=== PATIENT | female | born 1980 | race Caucasian/White ===

== ENCOUNTER 2020-09-20 07:56 | Emergency (ER) | payer SELFPAY ==
--- OUTSIDE RECORDS SUMMARY | 2020-09-20 08:05 | XMS REPORT | Continuity of Care Document ---
:1980 Author Organization [facility] t Address [address] [place] [place] [address] Care Team Providers Name Role Phone Irineo HERNANDEZ, Candy. Primary Care Physician Bg Wells DO Attending Clinician Marshal Dan Attending Clinician Tima Warner MD Attending Clinician Juan CANTU Attending Clinician Mak Prieto MD Attending Clinician Tash HERNANDEZ, Ara Attending Clinician Henry HERNANDEZ Attending Clinician Luan Ramachandran MD Attending Clinician Noni HERNANDEZ Attending Clinician Primo Reeder DO Attending Clinician Neftaly Courtney MD Attending Clinician Margarita HERNANDEZ, Keenan Attending Clinician Italo HERNANDEZ, Kiel Attending Clinician Estrellita HERNANDEZ, David Anaya Attending Clinician [phone] Gayla HERNANDEZ, Bg Attending Clinician Yvonne DYKES Attending Clinician Unavailable Thuy HERNANDEZ Attending Clinician Althea Garcias MD Attending Clinician Shannon Montana MD Attending Clinician Nayely Thomas MD Attending Clinician Gerardo Torres Attending Clinician Jomar Anderson Attending Clinician Otis Wallace Attending Clinician Hilton Alvarado Attending Clinician LANCE Attending Clinician Unavailable Vidal Attending Clinician JUAN Admitting Clinician Unavailable TASH Admitting Clinician Unavailable MARGARITA Admitting Clinician Unavailable ESTRELLITA Admitting Clinician Unavailable LANCE Admitting Clinician Unavailable Payers Payer Name Policy Type Policy Effective Date Expiration Date Sour ce Number MEDICAID [id number] 2019 [place] [id number] 00:00:00 [facility] ICAID [id number]/[id number] 20-PresentMedic aid Problems Condition Condition Condition Status Onset Resolution Last Treating Co mments Source Name Details Category Date Date Treatment Clinician Date ABDOMINAL Diagnosis Active 2019-052020-03-20 Memoria PAIN 0-23 10:35:00 l 00:00: Bruno ABDOMINAL 00 PAIN Active 03/17/2020 [facility] Back pain Back pain Disease Active 2019-05 [facility] 0-11 [facility] 00:00: st 00 Intractabl Intractabl Disease Active 2020- [place] e low back e low back 8-31 Me thodi pain pain 00:00: st 00 Abdominal Abdominal Disease Active 2020- [facility] pain pain 8-29 [facility] 00:00: st 00 Generalize Generalize Disease Active 2020-0 [place] d d 7-21 [facility] abdominal abdominal 00:00: st pain pain 00 Right Right Disease Active 2020- [place] flank pain flank pain 7-21 Me thodi 00:00: st 00 Intractabl Intractabl Disease Active 2020-0 [place] e e 6-13 [facility] abdominal abdominal 00:00: st pain pain 00 Left lower Left lower Disease Active 2020-0 [place] quadrant quadrant 5-29 Method i abdominal abdominal 00:00: st pain pain 00 ABSCESS IN Diagnosis Active 2016-2016-10-03 Memoria MONTH 5-11 11:03:00 l ABSCESS 00:00: [place] IN MONTH 00 Active 10/03/2016 [facility] COUGH, Diagnosis Active 2016-09-08 Mem oria CONGESTED 09-05 12:21:00 l COUGH, 00:00: [place] CONGESTED 00 Active 09/05/2016 [facility] URINARY Diagnosis Active 2015-052016-05-21 Me moria PROBLEMS 07-22 23:30:00 l URINARY 01:00: Bruno PROBLEMS 00 Active 05/21/2016 [facility] POSS Diagnosis Active 2015-12-31 Mem oria REACTION 8- 22:16:00 l TO POSS 00:00: [place] MEDICATION REACTION 00 TO MEDICATION Active 12/31/2015 [facility] KIDNEY Diagnosis Active 2015-11-09 Mem oria STONES 6-15 01:53:00 l KIDNEY 01:00: Bruno STONES 00 Active 11/08/2015 [facility] KIDNEY Diagnosis Active 2015-11-20 Mem oria STONES 6-09 07:06:00 l BACK PAIN KIDNEY 08:00: Erica nn STONES 00 BACK PAIN Active 11/02/2015 [facility] Heart Problem Resolve 2020-03-19 Dennis michaela disease d 22:02:59 l (disorder) Heart Erica nn disease (disorder) Resolved Problem 03/19/2020 [facility] Tachycardi Problem Resolve 2020-03-19 Memoria a d 22:02:59 l (finding) [place] Tachycardi a (finding) Resolved Problem 03/19/2020 [facility] Kidney Problem Resolve 2020-03-19 Dennis michaela stone d 22:02:59 l (disorder) Kidney Herm rachael stone (disorder) Resolved Problem 03/19/2020 [facility] History of Problem Active 2020-03-19 M emoria - 22:02:59 l hyperchole History Her bloom sterolemia of - (context-d hyperchole ependent sterolemia category) (context-d ependent category) Active Problem 03/19/2020 [facility] Hypertensi Problem Active 2020-03-19 M emoria ve 22:02:59 l disorder, Bruno systemic Hypertensi arterial ve (disorder) disorder, systemic arterial (disorder) Active Problem 03/19/2020 [facility] History of Past Illness Condition Condition Condition Status Onset Resolution Last Treating Co mments Source Name Details Category Date Date Treatment Clinician Date Low back Problem 2019-052020-03-19 2020-03-19 Memoria pain 0- 22:02:59 22:02:59 l Low back 17:00: Will n pain 00 03/17/2020 03/19/2020 [facility] Other Problem 2016-2016-10-06 2016-10-06 M emoria specified 5-11 04:37:25 04:37:25 l disorders Other 05:00: Will n of teeth specified 00 and disorders supporting of teeth structures and supporting structures 10/03/2016 10/06/2016 [facility] Acute Problem 2016-09-11 2016-09-11 M emoria upper 4-16 00:29:14 00:29:14 l respirator Acute 05:00: Erica nn y upper 00 infection, respirator unspecifie y d infection, unspecifie d 09/08/2016 09/11/2016 [facility] Discharge Problem 2015-052016-05-25 2016-05-25 Memoria Diagnosis: 2- 04:15:05 04:15:05 l Back pain 06:00: [place] Discharge 00 Diagnosis: Back pain 05/21/2016 05/25/2016 [facility] Discharge Problem 2015-052016-05-25 2016-05-25 Memoria Diagnosis: 2- 04:15:05 04:15:05 l [place] 06:00: Will n s Discharge 00 vaginalis Diagnosis: infection Trich[place] s vaginalis infection 05/21/2016 05/25/2016 [facility] Discharge Problem 2016-01-04 2016-01-04 Memoria Diagnosis: 8- 02:17:05 02:17:05 l Chest pain 05:00: Will n Discharge 00 Diagnosis: Chest pain 01/01/2016 01/04/2016 [facility] Discharge Problem 2015-11-10 2015-11-10 Memoria Diagnosis: 6-14 04:27:22 04:27:22 l Mid back 05:00: [place] pain on Discharge 00 left side Diagnosis: Mid back pain on left side 11/07/2015 11/10/2015 [facility] Allergies, Adverse Reactions, Alerts Allergy Allergy Status Severity Reaction(s) Onset Inactive Treating Comm ents Source Name Type Date Date Clinician No Known No Known Active Memori a Medicati Medicati l on on [place] Allergie Allergie s s Family History Family Member Diagnosis Comments Start Date Stop Date Source Natural father Hyperlipidemia [place] [facility] Natural father Hypertension [place] [facility] Maternal grandmother Heart disease [place] [facility] Paternal grandfather Cancer [place] mig[place] [facility] Paternal grandfather Diabetes Mike bullard [facility] Paternal grandmother Cancer [place] [facility] [facility] Social History Social Habit Start Date Stop Date Quantity Comments Source [facility] Alcohol Std Drinks [facility] Alcohol Binge Tobacco use and 2020-07-10 2020-07-10 Never used [place] [place] ethodist exposure 00:00:00 00:00:00 Alcohol intake 2020-07-10 2020-07-10 Lifetime Willy Me thodist 00:00:00 00:00:00 non-drinker (finding) History SDOH 2019-10-21 2019-10-21 1 [place] Meth odist Alcohol Frequency 00:00:00 00:00:00 History of tobacco 2017-07-23 Current smoker [place] [facility] use 00:00:00 Sex [birth year] At [birth year] [place] ethodist 00:00:00 00:00:00 Smoking Status Start Date Stop Date Source Former smoker 2020-07-10 00:00:00 2020-07-10 00:00:00 [place] [facility] Social History 2020-03-17 16:10:23 [facility] Medications Ordered Filled Start Stop Current Ordering Indication Dosage Frequency Signature Comments Components Source Medication Medication Date Date Medication? Clinician (SIG) Name Name Ondansetron 2019-05 No Notes: Dennis michaela 0-23 (Same as: l 20:21: Zofran) MEDICATION WASTE Product Size: 4 mg Product Wasted: ___ mg Morphine 2019-05 No Notes: Memoria 0-23 (Same l 20:21: as:MORPhin e Sulfate) Morphine 2019-05 No 2 mg, Memoria 0-23 Route: l 17:10: IVP, ONCE, Dosing Weight 81.364, kg, Priority: STAT, Start date: 03/17/20 12:10:00 CDT, Stop date: 03/17/20 12:10:00 CDT Ondansetron 2019-05 No 4 mg, Memor ia 0-23 Route: l 16:52: IVP, ONCE, Dosing Weight 81.364, kg, Priority: STAT, Start date: 03/17/20 11:52:00 CDT, Stop date: 03/17/20 11:52:00 CDT Sodium 2019-05 No 1,000 mL, Memori a Chloride 0-23 Infuse l 0.9% 16:51: Over: 1 Bruno (Bolus) IV 00 hr, Route: IV, ONCE, Priority: STAT, Dosing Weight 81.364 kg, Start date: 03/17/20 11:51:00 CDT, Stop date: 03/17/20 11:51:00 CDT Saline 2019-05 No Notes: Memoria Flush 0.9% 0-23 (Same as: l 16:18: BD Posiflush) Ketorolac 2019-05 No 30 mg, Memori a 0-23 Route: l 16:18: IVP, ONCE, Dosing Weight 81.364, kg, Priority: STAT, Start date: 03/17/20 11:18:00 CDT, Stop date: 03/17/20 11:18:00 CDT methocarbam 2019-05 Yes 750mg Q8H Take 750 [place] oL 0-12 mg by Methodi (ROBAXIN) 11:08: mouth st 750 MG 45 every 8 tablet (eight) hours. metoprolol 2019-05 Yes 25mg Q.5D Take 25 mg [place] tartrate 0-12 by mouth 2 Metho di (LOPRESSOR) 11:08: (two) st 25 mg 45 times a tablet day. gabapentin 2019-05 Yes 300mg Q.25D Take 300 [place] (NEURONTIN) 0-12 mg by Methodi 300 mg 11:08: mouth 4 st capsule 45 (four) times a day. ondansetron 2020- Yes 4mg Q8H Take 4 mg [place] (ZOFRAN) 4 0-12 by mouth Metho di MG tablet 11:08: every 8 st 45 (eight) hours as needed for nausea or vomiting. omeprazole 2020- Yes 20mg Q.5D Take 20 mg [place] (PriLOSEC) 0-12 by mouth 2 Met hodi 20 MG 11:08: (two) st capsule 45 times a day. zolpidem 2019-05 Yes 10mg QD Take 10 mg [facility]on (AMBIEN) 10 0-12 by mouth Meth prabhu mg tablet 11:08: nightly as st 45 needed for sleep. clonAZEPAM 2019-05 Yes 1mg Q.25D Take 1 mg [place] (KlonoPIN) 0-12 by mouth 4 Met hodi 1 MG tablet 11:08: (four) st 45 times a day. HYDROcodone 2019- Yes acute pain 1{tbl} Q4H Take 1 [place] -acetaminop 0-12 tablet by Met hodi hen (NORCO) 11:08: mouth st 10-325 mg 45 every 4 per tablet (four) hours as needed for moderate pain .acute pain. vortioxetin 2019-05 2020- No 10mg QD Take 10 mg [place] e 0-12 10-12 by mouth Methodi (Trintellix 02:13: 00:[address] ) 10 mg 52 :00 tablet metoprolol 2020- No 25mg Q.5D Take 25 mg [place] tartrate 01-28 by mouth 2 Meth prabhu (LOPRESSOR) 14:03: 00:00 (two) st 25 mg 13 :00 times a tablet day. gabapentin 2020- No 300mg Q.[id number] Take 300 [place] (NEURONTIN) 01-28 [id number] mg by Methodi 300 mg 13:47: 00:[address] capsule 59 :00 (three) times a day. metoprolol 2020- No 25mg Q.5D Take 1 [place] tartrate 01-28 tablet (25 Meth prabhu (LOPRESSOR) 00:00: 23:59 mg total) st 25 mg 00 :00 by mouth 2 tablet (two) times a day for 30 days. ferrous 2019- 2020- No 325mg Q.5D Take 1 [place] sulfate 325 01-28 tablet Metho di (65 FE) MG 00:00: 23:59 ([address] tablet 00 :00 total) by mouth 2 (two) times a day with meals for 30 days. gabapentin 2019- 2020- No 300mg Q.[id number] Take 1 [place] (NEURONTIN) 01-28- [id number] capsule Methodi 300 mg 00:00: 23:59 3D ([address] capsule 00 :00 total) by mouth 3 (three) times a day as needed (pain) for up to 5 days. polyethylen 2019- 2020- No 34g QD Take 34 g [place] e glycol 12-16 by mouth Method i (MIRALAX) 00:00: 23:[address] 17 gram 00 :00 30 days. packet HYDROcodone 2019- 2020- No acute pain 1{tbl} Q4H Take 1 [place] -acetaminop 12-15 tablet by Me thodi hen (NORCO) 12:09: 00:[address] 7.5-325 mg 45 :00 every 4 per tablet (four) hours as needed for moderate pain .acute pain. clonAZEPAM 2019-2019- No 1mg Q.25D Take 1 mg [place] (KlonoPIN) 12-15 by mouth 4 Me thodi 1 MG tablet 10:45: 00:00 (four) st 28 :00 times a day. metoprolol 2019-0 2020- No 25mg Q.5D Take 25 mg [place] tartrate 12-15 by mouth 2 Meth prabhu (LOPRESSOR) 10:45: 00:00 (two) st 25 mg 28 :00 times a tablet day. gabapentin 2019- 2020- No 300mg Q.[id number] Take 300 [place] (NEURONTIN) 12-15 [id number] mg by Methodi 300 mg 10:45: 00:[address] capsule 28 :00 (three) times a day. vortioxetin 2019-0 2020- No 10mg QD Take 10 mg [place] e 12-15 by mouth Methodi (Trintellix 10:45: 00:[address] ) 10 mg 28 :00 tablet vortioxetin 2019-0 2020- No 10mg QD Take 10 mg [place] e 12-15 by mouth Methodi (Trintellix 00:00: 23:[address] ) 10 mg 00 :00 30 days. tablet metoprolol 2020-0 2020- No 25mg Q.5D Take 1 [place] tartrate 12-15 tablet (25 Meth prabhu (LOPRESSOR) 00:00: 23:59 mg total) st 25 mg 00 :00 by mouth 2 tablet (two) times a day for 30 days. clonAZEPAM 2019-0 2020- No 1mg Q.[id number] Take 1 [place] (KlonoPIN) 12-15 [id number] tablet (1 Methodi 1 MG tablet 00:00: 23:59 3D mg total) st 00 :00 by mouth 3 (three) times a day for 7 days. gabapentin 2019- No 300mg Q.[id number] Take 1 [place] (NEURONTIN) 12-15 [id number] capsule Methodi 300 mg 00:00: 23:59 3D ([address] capsule 00 :00 total) by mouth 3 (three) times a day for 7 days. HYDROcodone 2020- No acute pain 1{tbl} Q4H Take 1 [place] -acetaminop 12-15 tablet by Me pena hen (NORCO) 00:00: 23:[address] 10-325 mg 00 :00 every 4 per tablet (four) hours as needed for moderate pain or severe pain for up to 7 days .acute pain. Max Daily Amount: 6 tablets cephalexin 2019- No 500mg Q.5D Take 500 [place] (KEFLEX) 12-13 07-21 mg by Methodi 500 MG 16:02: 00:[address] capsule 22 :00 (two) times a day. Started taking 11/04/19 for 7 days gabapentin 2019- No 300mg Q.[id number] Take 300 [place] (NEURONTIN) 11-06 [id number] mg by Methodi 300 mg 14:34: 00:[address] capsule 06 :00 (three) times a day. metoprolol 2019- No 25mg Q.5D Take 25 mg [place] tartrate 11-06 by mouth 2 Meth prabhu (LOPRESSOR) 14:34: 00:00 (two) st 25 mg 06 :00 times a tablet day. omeprazole 2020- No 20mg Q.5D Take 20 mg [place] (PriLOSEC) 11-06 by mouth 2 Me thodi 20 MG 14:34: 00:00 (two) st capsule 06 :00 times a day. vortioxetin 2019- No 20mg QD Take 20 mg [place] e 11-06 by mouth Methodi (Trintellix 14:34: 00:[address] ) 20 mg 06 :00 morning. tablet metoprolol 2019-0 2020- No 25mg Q.5D Take 1 [place] tartrate 11-06 tablet (25 Meth prabhu (LOPRESSOR) 00:00: 23:59 mg total) st 25 mg 00 :00 by mouth 2 tablet (two) times a day for 30 days. gabapentin 2019-0 2020- No 300mg Q.[id number] Take 1 [place] (NEURONTIN) 11-06 [id number] capsule Methodi 300 mg 00:00: 23:59 3D ([address] capsule 00 :00 total) by mouth 3 (three) times a day for 30 days. omeprazole 2019-0 2020- No 20mg Q.5D Take 1 [place] (PriLOSEC) 11-06 capsule Metho di 20 MG 00:00: 23:59 ([address] capsule 00 :00 total) by mouth 2 (two) times a day for 30 days. vortioxetin 2019-0 2020- No 20mg QD Take 1 [facility] e 11-06 tablet (20 Methodi (Trintellix 00:00: 23:59 mg total) st ) 20 mg 00 :00 by mouth tablet every morning for 30 days. dicyclomine 2019-0 2020- No 10mg Q.25D Take 1 [place] (BentyL) 10 11-06 capsule Meth prabhu MG capsule 00:00: 23:59 ([address] 00 :00 total) by mouth 4 (four) times a day before meals and nightly for 5 days. clonAZEPAM 2019-0 2020- No 1mg Q.5D Take 1 [place] (KlonoPIN) 11-06 tablet (1 Met hodi 1 MG tablet 00:00: 23:59 mg total) st 00 :00 by mouth 2 (two) times a day as needed for seizures for up to 5 days. phenazopyri 2019-0 2020- No 200mg Q.[id number] Take 1 [place] dine 11-06 [id number] tablet Method i (Pyridium) 00:00: 23:59 3D ([address] 200 MG 00 :00 total) by tablet mouth 3 (three) times a day as needed for bladder spasms for up to 3 days. vortioxetin 2019- No 10mg QD Take 10 mg [place] e 11-05 by mouth Methodi (BRINTELLIX 20:26: 00:[address] ) 20 mg 44 :00 tablet clonAZEPAM 2019- No .5mg Q6H Take 0.5 [place] (KlonoPIN) 11-05-13 mg by Methodi 1 MG tablet 20:25: 00:[address] 42 :00 every 6 (six) hours as needed for seizures. Per patient she only takes half tab at a time cephalexin 2019- No 500mg Q.5D Take 1 [facility] [place] (KEFLEX) 11-03 capsule Methodi 500 MG 00:00: 00:00 ([address] capsule 00 :00 total) by mouth 2 (two) times a day for 7 days. cephalexin 2019- No 500mg Q.5D Take 1 [place] (KEFLEX) 11-03 capsule Methodi 500 MG 00:00: 00:00 ([address] capsule 00 :00 total) by mouth 2 (two) times a day for 7 days. traMADoL 2019- No acute pain 50mg Q8H Take 1 [place] (Ultram) 50 6-04 06-09 tablet (50 M ethodi mg tablet 00:00: 23:59 mg total) st 00 :00 by mouth every 8 (eight) hours as needed for moderate pain for up to 5 days .acute pain. ibuprofen 2019- No 800mg Q6H Take 1 [place] (ADVIL) 800 10-20-13 tablet Metho di MG tablet 00:00: 00:00 ([address] 00 :00 total) by mouth every 6 (six) hours as needed for mild pain for up to 30 days. acetaminoph 2019- No acute pain 1{tbl} Q6H Take 1-2 [place] en-codeine -28 05-30 tablets by Hi jean (TYLENOL 00:00: 23:[address] WITH 00 :00 every 6 CODEINE #3) (six) 300-30 mg hours as per tablet needed for moderate pain for up to 2 days .acute pain. tramadol Yes 100 mg = 2 Mem oria hydrochlori 5-11 tab, PO, l de 50 MG 15:50: Q8H, PRN Erica nn Oral Tablet 00 pain, X 5 [Ultram] day, # 30 tab, 0 Refill(s) clindamycin Yes 300 mg = 1 Memoria 300 mg oral 5-11 cap, PO, l capsule 15:50: Q6H, X 10 Erica nn 00 day, # 40 cap, 0 Refill(s) Zofran ODT No 4 mg, Memori a 10-03 Route: PO, l 15:27: Drug form: [place] 00 TABDIS, ONCE, Dosing Weight 68.182, kg, Priority: STAT, Start date: 10/03/16 10:27:00 CDT, Stop date: 10/03/16 10:27:00 CDT Acetaminoph No 1 tab, Dennis michaela en 325 MG / 10-03 Route: PO, l Hydrocodone 15:27: Drug Form: [place] Bitartrate 00 TAB, 10 MG Oral Dosing Tablet Weight [[place] 68.182, 10/325] kg, ONCE, STAT, Start date: 10/03/16 10:27:00 CDT, Stop date: 10/03/16 10:27:00 CDT Bromphenira Yes 10 mL, PO, Memoria mine 4-16 Q4H, PRN l Maleate 0.4 16:43: cough, X 3 Bruno MG/ML / 00 day, # 180 Dextrometho mL, 0 rphan Refill(s) Hydrobromid e 2 MG/ML / Pseudoephed rine Hydrochlori de 6 MG/ML Oral Solution [Bromfed DM] Motrin 600 Yes 600 mg = 1 M emoria mg oral 4-16 tab, PO, l tablet 16:43: Q8H, PRN Bruno 00 Pain, take with food, X 5 day, # 15 tab, 0 Refill(s) Acetaminoph Yes 1 tab, PO, Memoria en 300 MG / 4-16 Q6H, PRN l Codeine 16:43: Pain, X 7 Erica nn Phosphate 00 day, # 6 30 MG Oral tab, 0 Tablet Refill(s) [Tylenol with Codeine #3] Metronidazo 2015-05 Yes 500 mg = 1 Memoria le 500 MG 2-28 tab, PO, l Oral Tablet 05:32: Q8H, X 7 He rmann [Flagyl] 00 day, # 21 tab, 0 Refill(s) Naproxen 2015-05 No 500 mg = 1 Mem oria 500 MG Oral 2-28 tab, PO, l Tablet 05:32: BID, PRN Bruno [Naprosyn] 00 Pain, # 20 tab, 0 Refill(s) Ketorolac 2015-05 No 60 mg, Memori a 07-23 Route: IM, l 04:51: Drug form: [place] 00 INJ, ONCE, Dosing Weight 75.114, kg, Priority: STAT, Start date: 05/21/16 22:51:00 [employer], Stop date: 05/21/16 22:51:00 [employer] Ativan No Notes: Memoria 8-08 (Same as: l 03:39: Ativan) Bruno 00 Morphine No Notes: Memoria 8-08 (Same l 03:39: as:MORPhin [place] 00 e Sulfate) Labetalol No Notes: Memori a 8-08 (Same as: l 03:38: Normodyne, Bruno 00 Trandate) Push over 2 minutes Give bolus over 2-3 minutes. Valium No Notes: Memoria 8-08 (Same as: l 02:47: Valium) [place] 00 Saline No Notes: Memoria Flush 0.9% 8-08 (Same as: l 02:47: BD [place] 00 Posiflush) Morphine No Notes: Memoria 6-16 (Same as: l 05:47: MORPhine Bruno 00 Sulfate) Cyclobenzap Yes 5 mg = 1 Me moria rine 6-16 tab, PO, l hydrochlori 05:46: TID, X 7 He rmann de 5 MG 00 day, # 21 Oral Tablet tab, 0 [Flexeril] Refill(s) Saline No Notes: Memoria Flush 0.9% 6-16 (Same as: l 03:32: BD [place] 00 Posiflush) Sodium No 1,000 mL, Memori a Chloride 616 2,000 l 0.154 03:32: ml/hr, [place] MEQ/ML 00 Infuse Injectable Over: 30 Solution minutes, Route: IV, ONCE, Priority: STAT, Dosing Weight 72.727 kg, Start date: 11/08/15 22:32:00 CDT, Duration: 1 doses or times, Stop date: 11/08/15 22:32:00 CDT Ondansetron 2016-0 No 4 mg, Memor ia 11-08 Route: l 03:32: IVP, ONCE, Dosing Weight 72.727, kg, Priority: STAT, Start date: 11/08/15 22:32:00 CDT, Stop date: 11/08/15 22:32:00 CDT Morphine 2016-0 No 4 mg, Memoria 616 Route: l 03:32: IVP, ONCE, Dosing Weight 72.727, kg, Priority: STAT, Start date: 11/08/15 22:32:00 CDT, Stop date: 11/08/15 22:32:00 CDT Ketorolac 2016-0 No 30 mg, Memori a 11-08 Route: l 03:32: IVP, ONCE, Dosing Weight 72.727, kg, Priority: STAT, Start date: 11/08/15 22:32:00 CDT, Stop date: 11/08/15 22:32:00 CDT Ibuprofen 2016-0 Yes 800 mg = 1 Me moria 800 MG Oral 6-14 tab, PO, l Tablet 20:34: Q8H, PRN [place] [Motrin] 00 Pain, Take with food, # 18 tab, 0 Refill(s) Diazepam 5 2016-0 No 5 mg = 1 Mem oria MG Oral 6-14 tab, PO, l Tablet 20:34: TID, PRN [place] [Valium] 00 Pain, # 15 tab, 0 Refill(s) Morphine 2016-0 No 4 mg, Memoria 6-14 Route: l 19:42: IVP, Drug Bruno form: INJ, ONCE, Dosing Weight 72.727, kg, Priority: STAT, Start date: 11/07/15 14:42:00 CDT, Stop date: 11/07/15 14:42:00 CDT Valium 2016-0 No 5 mg, Memoria 614 Route: l 18:21: IVP, Drug [place] form: INJ, ONCE, Dosing Weight 72.727, kg, Priority: STAT, Start date: 11/07/15 13:21:00 CDT, Stop date: 11/07/15 13:21:00 CDT Fentanyl No 50 Memoria 6-14 microgram, l 17:52: Route: Bruno 00 IVP, ONCE, Dosing Weight 72.727, kg, Priority: STAT, Start date: 11/07/15 12:52:00 CDT, Stop date: 11/07/15 12:52:00 CDT Morphine No Notes: Memoria 6-14 (Same l 17:52: as:MORPhin e Sulfate) Saline No Notes: Memoria Flush 0.9% -14 (Same as: l 17:41: BD Posiflush) Sodium No 1,000 mL, Memori a Chloride -14 2,000 l 0.154 17:41: ml/hr, [place] MEQ/ML 00 Infuse Injectable Over: 30 Solution minutes, Route: IV, 1,000, Drug form: INJ, ONCE, Priority: STAT, kg, Start date: 11/07/15 12:41:00 CDT, Duration: 1 doses or times, Stop date: 11/07/15 12:41:00 CDT Ketorolac No 4 days Memor ia 6-14 l 17:41: MEDICATION WASTE Product Size: 30 mg Product Wasted: ___ mg Ondansetron No Notes: Dennis michaela -14 (Same as: l 17:41: Zofran) MEDICATION WASTE Product Size: 4 mg Product Wasted: ___ mg Vital Signs Vital Name Observation Time Observation Value Comments Source Systolic blood 2020-07-11 03:00:00 145 mm[Hg] Iain young [facility] pressure Diastolic blood 2020-07-11 03:00:00 78 mm[Hg] Durga dolan [facility] pressure Heart rate 2020-07-11 03:00:00 72 /min Willy Chacon Body temperature 2020-07-11 03:00:00 36.89 Cathy [place] [facility] Respiratory rate 2020-07-11 03:00:00 16 /min [facility] Oxygen saturation in 2020-07-11 03:00:00 100 /min [place] [facility] Arterial blood by Pulse oximetry Body height 2020-07-10 21:42:00 170.2 cm [place] [facility] Body weight 2020-07-10 21:42:00 80.74 kg [place] [facility] BMI 2020-07-10 21:42:00 27.88 kg/m2 [place] [facility] Systolic (mm Hg) 2020-03-17 20:53:00 Dennis rial Bruno Diastolic (mm Hg) 2020-03-17 20:53:00 Mem orial [place] Heart Rate 2020-03-17 20:53:00 [facility] Respitory Rate 2020-03-17 20:53:00 Memori al [place] Temperature Oral (F) 2020-03-17 20:53:00 98.2 F [facility] [place] Systolic (mm Hg) 2020-03-17 19:17:00 Dennis rial [place] Diastolic (mm Hg) 2020-03-17 19:17:00 Mem orial [place] Respitory Rate 2020-03-17 19:17:00 Memori al Bruno Heart Rate 2020-03-17 19:17:00 [facility] [place] Heart Rate 2020-03-17 17:38:00 [facility] [place] Respitory Rate 2020-03-17 17:38:00 Memori al Bruno Systolic (mm Hg) 2020-03-17 17:38:00 Dennis rial Bruno Diastolic (mm Hg) 2020-03-17 17:38:00 Mem orial Bruno Height 2020-03-17 16:02:00 170.18 cm [facility] [place] BMI Calculated 2020-03-17 16:02:00 Memori al Bruno Weight 2020-03-17 16:02:00 [facility] [place] Temperature Oral (F) 2020-03-17 16:02:00 97.8 F [facility] Temperature Oral (F) 2016-10-03 15:06:00 97.6 F [facility] [place] Heart Rate 2016-10-03 15:06:00 [facility] [place] Systolic (mm Hg) 2016-10-03 15:06:00 Dennis rial Bruno Diastolic (mm Hg) 2016-10-03 15:06:00 Mem orial [place] Height 2016-10-03 15:06:00 170.18 cm [facility] [place] Respitory Rate 2016-10-03 15:06:00 Memori al [place] Weight 2016-10-03 15:06:00 [facility] [place] BMI Calculated 2016-10-03 15:06:00 Memori al [place] Height 2016-09-08 16:03:00 170.18 cm [facility] [place] Temperature Oral (F) 2016-09-08 16:03:00 97.8 F [facility] [place] BMI Calculated 2016-09-08 16:03:00 Memori al [place] Systolic (mm Hg) 2016-09-08 16:03:00 Dennis rial [place] Diastolic (mm Hg) 2016-09-08 16:03:00 [facility] Heart Rate 2016-09-08 16:03:00 [facility] Respitory Rate 2016-09-08 16:03:00 [facility] Weight 2016-09-08 16:03:00 [facility] Heart Rate 2016-05-22 06:05:00 [facility] Systolic (mm Hg) 2016-05-22 06:05:00 Dennis rial [facility] Diastolic (mm Hg) 2016-05-22 06:05:00 [facility] Respitory Rate 2016-05-22 06:05:00 [facility] Temperature Oral (F) 2016-05-22 06:05:00 97.9 F [facility] Height 2016-05-22 04:22:00 170.18 cm [facility] BMI Calculated 2016-05-22 04:22:00 [facility] Weight 2016-05-22 04:22:00 [facility] Temperature Oral (F) 2016-05-22 04:22:00 98.0 F [facility] Heart Rate 2016-05-22 04:22:00 [facility] Respitory Rate 2016-05-22 04:22:00 [facility] Systolic (mm Hg) 2016-05-22 04:22:00 Dennis [facility] [place] Diastolic (mm Hg) 2016-05-22 04:22:00 [facility] Respitory Rate 2016-01-01 05:16:00 [facility] Heart Rate 2016-01-01 05:16:00 [facility] Systolic (mm Hg) 2016-01-01 05:16:00 Dennis [facility] [place] Diastolic (mm Hg) 2016-01-01 05:16:00 [facility] Temperature Oral (F) 2016-01-01 05:16:00 98.4 F [facility] Heart Rate 2016-01-01 03:57:00 [facility] Respitory Rate 2016-01-01 03:57:00 [facility] Systolic (mm Hg) 2016-01-01 03:57:00 Dennis [facility] [place] Diastolic (mm Hg) 2016-01-01 03:57:00 [facility] Weight 2016-01-01 02:35:00 [facility] BMI Calculated 2016-01-01 02:35:00 [facility] Heart Rate 2016-01-01 02:35:00 [facility] Systolic (mm Hg) 2016-01-01 02:35:00 Dennis rial [facility] Diastolic (mm Hg) 2016-01-01 02:35:00 [facility] Temperature Oral (F) 2016-01-01 02:35:00 98.8 F [facility] Respitory Rate 2016-01-01 02:35:00 [facility] Height 2016-01-01 02:35:00 170.18 cm [facility] Respitory Rate 2015-11-09 06:28:00 [facility] Systolic (mm Hg) 2015-11-09 06:28:00 Dennis rial [facility] Diastolic (mm Hg) 2015-11-09 06:28:00 [facility] Height 2015-11-09 03:30:00 170.18 cm [facility] Weight 2015-11-09 03:30:00 [facility] BMI Calculated 2015-11-09 03:30:00 [facility] Temperature Oral (F) 2015-11-09 03:30:00 98.0 F [facility] Heart Rate 2015-11-09 03:30:00 [facility] Respitory Rate 2015-11-09 03:30:00 [facility] Systolic (mm Hg) 2015-11-09 03:30:00 [facility] [place] Diastolic (mm Hg) 2015-11-09 03:30:00 [facility] Heart Rate 2015-11-07 19:48:00 [facility] Temperature Oral (F) 2015-11-07 19:48:00 97.7 F [facility] Systolic (mm Hg) 2015-11-07 19:48:00 Dennis [facility] [place] Diastolic (mm Hg) 2015-11-07 19:48:00 [facility] Respitory Rate 2015-11-07 19:48:00 [facility] BMI Calculated 2015-11-07 17:35:00 [facility] Weight 2015-11-07 17:35:00 [facility] Height 2015-11-07 17:35:00 170.18 cm [facility] Temperature Oral (F) 2015-11-07 17:35:00 97.7 F [facility] Respitory Rate 2015-11-07 17:35:00 [facility] Heart Rate 2015-11-07 17:35:00 [facility] Systolic (mm Hg) 2015-11-07 17:35:00 Dennis rial [place] Diastolic (mm Hg) 2015-11-07 17:35:00 [facility] Procedures Procedure Date / Time Performing Clinician Source Performed XR SACRUM AND COCCYX 2020-07-10 22:15:19 Mikki Antoine [facility] XR LUMBAR SPINE 2 OR 3 VW 2020-07-10 22:15:06 Mio Antoine [facility] MRI LUMBAR SPINE WO 2020-03-05 23:24:51 Candelario Warner CONTRAST Tima COVID-19 QUALITATIVE PCR 2020-03-05 22:29:00 Candelario Warner HC COMPLETE BLD COUNT 2020-03-05 20:30:00 Candelario Warner W/AUTO DIFF Tima BASIC METABOLIC PANEL 2020-03-05 20:30:00 Candelario Warner HEPATIC FUNCTION PANEL 2020-03-05 20:30:00 Candelario Warner LIPASE LEVEL 2020-03-05 20:30:00 Candelario Warner ESTIMATED GFR 2020-03-05 20:30:00 Candelario Warner CBC HEMOGRAM 2020-01-29 04:47:00 Oleg Figueroa odfarhana BASIC METABOLIC PANEL 2020-01-29 04:47:00 Oleg Figueroa ESTIMATED GFR 2020-01-29 04:47:00 HenryOleg Willy Meth odist [place] < 1 HOUR 2020-01-28 09:58:04 Corey Reeder thodist [place] AN ELECTIVE 2020-01-28 08:00:11 Diane Ramachandran Willy Vicente odist ENDOTRACHEAL AIRWAY [place] LAMINECTOMY, LUMBAR 2020-01-28 07:25:00 Corey Reeder PROTHROMBIN TIME WITH INR 2020-01-27 12:57:00 Candelario Mitchell TYPE AND SCREEN 2020-01-27 12:14:00 Candelario Mitchell TOTAL IRON BINDING 2020-01-27 12:09:00 Henry Olegnida Aguilera M ethodist CAPACITY FERRITIN LEVEL 2020-01-27 12:09:00 Oleg Figueroa HC COMPLETE BLD COUNT 2020-01-25 05:26:00 Bev Gold W/AUTO DIFF COMPREHENSIVE METABOLIC 2020-01-25 05:26:00 Bev Gold PANEL ESTIMATED GFR 2020-01-25 05:26:00 Bev Gold MRI LUMBAR SPINE W WO 2020-01-22 14:24:58 Bev Gold CONTRAST TROPONIN 2020-01-22 10:09:00 Bev Gold TROPONIN 2020-01-22 06:10:00 Bev Gold TROPONIN 2020-01-22 03:02:00 Bev Gold COVID-19 QUALITATIVE PCR 2020-01-22 02:37:00 Leighton Prieto US PELVIC TRANSABDOMINAL 2020-01-21 23:52:12 Leighton Prieto US PELVIC TRANSVAGINAL 2020-01-21 23:52:[address] ABDOMEN PELVIS W 2020-01-21 22:50:52 Leighton Prieto CONTRAST URINE CULTURE 2020-01-21 21:09:00 Mikki Antoine Go URINALYSIS SCREEN AND 2020-01-21 21:09:00 Leighton Prieto MICROSCOPY, WITH REFLEX TO CULTURE HCG QUALITATIVE, URINE 2020-01-21 21:09:00 Leighton Prieto [facility] SCREEN HC COMPLETE BLD COUNT 2020-01-21 21:02:00 Leighton Prieto W/AUTO DIFF COMPREHENSIVE METABOLIC 2020-01-21 21:02:00 Leighton Prieto PANEL LIPASE LEVEL 2020-01-21 21:02:00 Leighton Prieto ESTIMATED GFR 2020-01-21 21:02:00 Mikki Antoine [facility] Go HC COMPLETE BLD COUNT 2019-12-16 05:59:00 Fabiana Rendon W/AUTO DIFF [place] BASIC METABOLIC PANEL 2019-12-16 05:59:00 Fabiana Rendon [facility] [place] ESTIMATED GFR 2019-12-16 05:59:00 Fabiana Rendon Me thodist [place] MRI ABDOMEN WO CONTRAST 2019-12-15 22:24:15 Fabiana Rendon [facility] [place] [address] THORACIC SPINE WO 2019-12-15 07:03:01 Fabiana Rendon on [facility] CONTRAST [place] LACTIC ACID LEVEL, SEPSIS 2019-12-14 16:04:00 Felix Courtney - NOW AND REPEAT 2X EVERY 3 HOURS LACTIC ACID LEVEL, SEPSIS 2019-12-14 15:45:00 Felix Courtney - NOW AND REPEAT 2X EVERY 3 HOURS US PELVIC DOPPLER 2019-12-14 14:39:52 Felix Courtneyist US PELVIC TRANSABDOMINAL 2019-12-14 14:39:52 Felix Courtney US PELVIC TRANSVAGINAL 2019-12-14 14:39:52 Felix Courtney [facility] US GALLBLADDER 2019-12-14 14:39:19 Felix Courtney M ethodist COVID-19 QUALITATIVE PCR 2019-12-14 12:09:[address] RENAL STONE PROTOCOL 2019-12-14 10:39:33 Felix Courtney HC COMPLETE BLD COUNT 2019-12-14 09:28:00 Felix Courtney W/AUTO DIFF COMPREHENSIVE METABOLIC 2019-12-14 09:28:00 Felix Courtney [facility] PANEL LACTIC ACID LEVEL, SEPSIS 2019-12-14 09:28:00 Felix Courtney - NOW AND REPEAT 2X EVERY 3 HOURS ESTIMATED GFR 2019-12-14 09:28:00 Felix Courtney ethodist URINE CULTURE 2019-12-14 09:20:00 Felix Courtney M ethodist URINALYSIS SCREEN AND 2019-12-14 09:20:00 Felix Courtney MICROSCOPY, WITH REFLEX TO CULTURE HCG QUALITATIVE, URINE 2019-12-14 09:20:00 Felix Courtney [facility] SCREEN HEMOGLOBIN & HEMATOCRIT 2019-11-07 11:40:00 Laura Dexter HC COMPLETE BLD COUNT 2019-11-07 05:41:00 Efrain Brooks W/AUTO DIFF COMPREHENSIVE METABOLIC 2019-11-07 05:41:00 PomonaEfrain gaviria [facility] PANEL LIPASE LEVEL 2019-11-07 05:41:00 Efrain Brooks [facility] ESTIMATED GFR 2019-11-07 05:41:00 PomonaEfrain gaviria [facility] SMEAR REVIEW 2019-11-07 05:41:00 Efrain Brooks Me [facility]odist US PELVIC TRANSABDOMINAL 2019-11-06 19:28:16 PomonaEfrain gaviria US PELVIC TRANSVAGINAL 2019-11-06 19:28:16 PomonaEfrain gaviria URINE CULTURE 2019-11-06 18:46:00 Efrain Brooks [facility] URINALYSIS SCREEN AND 2019-11-06 18:46:00 PomonaEfrain gaviria [facility] MICROSCOPY, WITH REFLEX TO CULTURE HCG QUALITATIVE, URINE 2019-11-06 18:46:00 Efrain Brooks [facility] SCREEN CT RENAL STONE PROTOCOL 2019-11-06 17:32:02 Efrain Brooks juan miguel [facility] HC COMPLETE BLD COUNT 2019-11-06 15:45:00 Efrain Brooks [facility] W/AUTO DIFF COMPREHENSIVE METABOLIC 2019-11-06 15:45:00 Efrain Brooks [facility] PANEL LIPASE LEVEL 2019-11-06 15:45:00 Efrain Brooks [facility] ESTIMATED GFR 2019-11-06 15:45:00 Efrain Brooks [facility] ECG 12-LEAD 2019-11-06 15:17:25 Jonatan Puckett Willy Meth odist CT ABDOMEN PELVIS WO 2019-11-04 16:28:51 Leia Boland CONTRAST Bg URINALYSIS SCREEN AND 2019-11-04 15:33:00 Leia Boland [facility] MICROSCOPY, WITH REFLEX TO Bg CULTURE URINE DRUGS OF ABUSE 2019-11-04 15:33:00 Leia Boland SCREEN Bg HCG QUALITATIVE, URINE 2019-11-04 15:33:00 Leia Boland on [facility] SCREEN Bg HC COMPLETE BLD COUNT 2019-11-04 14:50:00 Leia Boland [facility] W/AUTO DIFF Bg COMPREHENSIVE METABOLIC 2019-11-04 14:50:00 Leia Boland [facility] PANEL Bg LIPASE LEVEL 2019-11-04 14:50:00 Leia Boland Meth odist Bg ESTIMATED GFR 2019-11-04 14:50:00 Leia Boland Meth odist Bg BASIC METABOLIC PANEL 2019-10-27 04:12:00 Tan Woodard HC COMPLETE BLD COUNT 2019-10-27 04:12:00 Tan Woodard [facility] W/AUTO DIFF ESTIMATED GFR 2019-10-27 04:12:00 Tan Woodard Meth odist BASIC METABOLIC PANEL 2019-10-25 04:43:00 UnuiRafa garcia on [facility]ism Erons HC COMPLETE BLD COUNT 2019-10-25 04:43:00 Rafa Turner [facility] W/AUTO DIFF Erons ESTIMATED GFR 2019-10-25 04:43:00 Mike Turnerernestina Willy Met hodist Erons SMEAR REVIEW 2019-10-25 04:43:00 Rafa Turner Met hodist Erons MRI LUMBAR SPINE WO 2019-10-24 17:24:07 Rafa Turner [facility] CONTRAST Erons TOTAL IRON BINDING 2019-10-24 13:45:00 Rafa Turner [facility] CAPACITY Erons FERRITIN LEVEL 2019-10-24 13:45:00 Mike Turnerernestina Willy Met hodist Erons BASIC METABOLIC PANEL 2019-10-24 04:41:00 Matthew Thomas HC COMPLETE BLD COUNT 2019-10-24 04:41:00 Matthew Thomas W/AUTO DIFF ESTIMATED GFR 2019-10-24 04:41:00 Matthew Thomas SMEAR REVIEW 2019-10-24 04:41:00 Matthew Thomas [place] PYELOGRAM RETROGRADE 2019-10-23 18:27:23 Mtathew Thomas [place] AN ELECTIVE 2019-10-23 16:41:19 Jonathan Garcias odfarhana ENDOTRACHEAL AIRWAY Althea CYSTO, URETEROSCOPY 2019-10-23 16:15:00 Matthew Thomas CYSTO STENT INSERTION 2019-10-23 16:15:00 Matthew Thomas LIPID PANEL 2019-10-23 14:06:00 Rafa Turner Met hodist Erons HEMOGLOBIN A1C 2019-10-23 14:06:00 Rafa Turner Met hodist Erons HC COMPLETE BLD COUNT 2019-10-22 07:54:00 Alysa Gaona [facility] W/AUTO DIFF BASIC METABOLIC PANEL 2019-10-22 07:54:00 Alysa Gaona [facility] ESTIMATED GFR 2019-10-22 07:54:00 Alysa Gaona Meth odist US PELVIC TRANSABDOMINAL 2019-10-21 22:34:17 ItaloJonatan alvarado John ston [facility] US PELVIC TRANSVAGINAL 2019-10-21 22:34:17 Jonatan Puckett Kiel Mckeont on [facility] US PELVIC DOPPLER 2019-10-21 22:34:17 Jon[address]ett Me thodist CT RENAL STONE PROTOCOL 2019-10-21 20:57:21 Italo, Jonatan Yamili Mike ton [facility] HC COMPLETE BLD COUNT 2019-10-21 19:25:00 Italo, Jonatan Loboi Miketo n [facility] W/AUTO DIFF BASIC METABOLIC PANEL 2019-10-21 19:25:00 Italo, Jonatan Mckeonto n [facility] HCG QUALITATIVE, SERUM 2019-10-21 19:25:00 Italo, Jonatan Mckeont on [facility] SCREEN ESTIMATED GFR 2019-10-21 19:25:00 Ramón Puckettdevan Lobohusam Willy Meth odist URINALYSIS SCREEN AND 2019-10-21 19:04:00 Italo, Jonatan Mckeonto n [facility] MICROSCOPY, WITH REFLEX TO CULTURE HEPATIC FUNCTION PANEL 2019-10-21 19:04:00 Italo, Jonatan Loboi Miket on [facility] section [facility] Tonsillectomy [facility] Plan of Care Planned Activity Planned Date Details Comments Source Future Scheduled 2020-12-24 INFLUENZA VACCINE Miketo n [facility] Test 00:00:00 [code = INFLUENZA VACCINE] Future Scheduled 2001-02-11 Screening for [facility] thodist Test 00:00:00 malignant neoplasm of cervix (procedure) [code = 198508369] Future Scheduled 1998-02-11 Hepatitis C [place] Met hodist Test 00:00:00 screening (procedure) [code = 445466529] Future Scheduled 1996 COVID-19 VACCINE (1) [facility] Test 00:00:00 [code = COVID-19 VACCINE (1)] Encounters Start End Encounter Admission Attending Care Care Encounter Source Date/Time Date/Time Type Type Clinicians Facility Department ID 2020-07-11 2020-07-11 Emergency ZULLY [facility] [id number] [place] 00:00:00 00:00:00 KALIF [address] 2020-03-17 2020-03-17 Outpatient Candelario Dan [facility] [id number] 10:59:16 16:21:00 Getyee 06 2020-03-17 2020-03-17 Emergency E [facility] 7506 NE 10:59:00 10:59:00 2020-03-05 2020-03-06 Outpatient JUAN, [place] [address] [id number] [place] 00:00:00 00:00:00 COREY 273 [facility] i 2020-01-21 2020-01-29 Inpatient HENRY, [place] [address] [id number] [place] 00:00:00 00:00:00 OLEG 592 [facility] i 2019-12-14 2019-12-16 Inpatient OBUDULU, [place] [address] [id number] [place] 00:00:00 00:00:00 FABIANA 296 Meth[facility] di 2019-11-06 2019-11-07 Outpatient TASH, [place] [address] [id number] [place] 00:00:00 00:00:00 ARUSHA 696 [facility] i 2019-11-04 2019-11-04 Emergency GAYLA, [place] [address] [id number] [place] 00:00:00 00:00:00 LEIA 990 [facility] i 2019-10-21 2019-10-28 Inpatient THUY, [place] [address] [id number] [place] 00:00:00 00:00:00 TAN [address] 2016-10-03 2016-10-03 Outpatient Meño Torres [facility] [id number] 09:56:00 10:55:00 Gerardo 2016-09-08 2016-09-08 Outpatient Monica [facility] [id number] 10:55:00 11:50:00 Nolberto Hadley 2016-05-21 2016-05-22 Outpatient James Wallace [facility] [id number] 21:51:00 00:12:00 Otis 03 2015-12-31 2016-01-01 Outpatient Christiano [facility] [id number] 21:15:00 00:17:00 Matt Canela 2015-12-17 2015-12-17 Emergency LANCE, [facility] [id number] [place] 00:00:00 00:00:00 LORENA [address] 2015-11-08 2015-11-09 Outpatient Vidal, [facility] [id number] 22:00:00 01:35:00 Job 2015-11-07 2015-11-07 Outpatient Weathers, [facility] [id number] 12:21:00 15:44:00 Matt Hilton 00 Results Test Description Test Time Test Comments Results Result Sourc e Comments XR Sacrum And 2020-06-26 Hm Interface, Aguilera Coccyx [address] 22:42:30 Incoming - 07/10/2020 10:45 PM CST EXAMINATION: XR SACRUM AND COCCYXCLINICAL HISTORY: FallCOMPARISON: Lumbar MRI from 03/05/2020IMP N:3 views of the lumbar spine were obtained. Sacrum alignment is unchanged. No acute fracture identified. Overlying soft tissue is unremarkable. [id number] XR Lumbar Spine 2 2020-06-26 Hm Interface, [email or web address]] ton Or 3 Vw [address] 22:29:59 Incoming - 07/10/2020 10:33 PM CST EXAMINATION: XR LUMBAR SPINE 2 OR 3 VWCLINICAL HISTORY: FallCOMPARISON: MRI from 03/05/2020IMPRESS N:3 views of the lumbar spine were obtained. For the purposes of this dictation the last well defined interspaces called L5-S1. Lumbar spine alignment is normal. No acute fracture identified. Mild disc space narrowing at L3-L4 and L4-L5. Laminectomy changes at L3-L4 and L4-W1Yxttvkbvb soft tissue is unremarkable. [id number] URINE AND STOOL 2020-02-25 Yellow [facility] 3 *NA*(03/17/20 12:31 Erica nn 17:31:00 PM) URINE AND STOOL 2020-02-25 Clear (03/17/20 Dennis rial 3 12:31 PM) Bruno 17:31:00 URINE AND STOOL 2020-03-17 17:31:00 Test Item Value Reference Range Interpretation Comme nts UA Spec Grav (test code = UA Spec Grav) 1.010 1 [facility] [id number] 17:31:00 Test Item Value Reference Range Interpretation Comments UA pH (test code = UA pH) 6.0 1 5.0-8.0 [facility] [id number] 17:31:00Negative *NA*(03/17/20 12:31 PM)[facility] [id number] 17:31:00Negative (03/17/20 12:31 PM)[facility] [id number] 17:31:000.2[facility] HQZJY6694-80-28 17:31:00Negative (03/17/20 12:31 PM)[facility] [id number] 17:31:00Negative (03/17/20 12:31 PM)[facility]annCHEM [id number] 16:21:009.5[facility] HermannCHEM [id number] 16:21:00 Test Item Value Reference Range Interpretation Comments B/C Ratio (test code = B/C Ratio) 7 1 6-25 [facility] [id number] 16:21:004.2[facility]annCHEM PANEL 2020-03-17 16:21:00 Test Item Value Reference Range Interpretation Comments A/G Ratio (test code = A/G Ratio) 0.9 1 0.7-1.6 [facility]CHE[facility] [id number] 16:21:0098[facility]annCHEM PANEL 2020-03-17 16:21:05884Nrolniht DbvpzoiXWRKDKUKVTWGO2248-59-09 16:21:00Negative *NA*(03/17/20 11:21 AM)[facility] KincifhHNHMLXHVFQ1453-76-58 16:21:0062.9[facility] JxweabiNCJDFGYXPA3933-34-11 16:21:0028.4[facility] XmoblitHNAQTKGBGI0056-47-95 16:21:006.2[facility]orial GdjvkirWGZVJPKNVM1546-89-62 16:21:002.0[facility] MARICLPPAW3461-76-48 16:21:000.5[facility] KykkngpZMDEPOQUFH3156-06-25 16:21:002.9 Memorial OticswvXNOJHKEQBQ2874-55-83 16:21:001.3[facility] HermannHEMATOLOGY 2020-03-17 16:21:000.3[facility] XlqqtsoLXBWUBGJUL1659-48-86 16:21:000.1[facility] PczipnwKVWRLFHUHB2565-85-76 16:21:002+ *ABN*(03/17/20 11:21 AM)[facility] YETLAKZHMM2203-29-74 16:21:004.7[facility] HqhrqviJQEBAVFCTR2187-06-92 16:21:00 4.84Memorial NmstwfeLFXWJDCMZB4308-67-44 16:21:0010.5[facility] HermannHEMATOLOGY 2020-03-17 16:21:0033.6[facility] TlvahgwHEMOLIOUCT4030-95-57 16:21:0069.6[facility] EdmavktBVGJBSIHHM4052-77-63 16:21:00 Test Item Value Reference Range Interpretation Comments MCH (test code = MCH) 21.8 pg 27.0-31.0 Memorial LhcvsaoNTLKZJCIMA7454-72-39 16:21:0031.3[facility] HermannHEMATOLOGY 2020-03-17 16:21:0019.1[facility] DrupfowRWXRWGZCKA3190-79-12 16:21:07127Hvwzpiju DeamjvnDOWUGOUUUW0131-81-94 16:21:007.8[facility] HermannCARDIAC DQQDJBF7501-56-38 16:21:00<0.02[facility] HermannCHEM QQXRE5036-27-25 16:21:21042Svhdialw Bruno CHEM ZVITP6601-03-64 16:21:005[facility] HermannCHEM JWRNC9982-63-73 16:21:000.76 [facility] HermannCHEM PEKIM7969-96-29 16:21:46706Ojktwupu HermannCHEM PANEL 2020-03-17 16:21:003.5[facility] HermannCHEM JXRWQ0414-79-67 16:21:40602Fguhxyjw HermannCHEM OMYHT3927-00-24 16:21:0026[facility] HermannCHEM YGQDT7474-89-48 16:21:009.2[facility] HermannCHEM RRJMJ3681-31-10 16:21:008.0[facility] HermannCHEM QVWIH9754-61-57 16:21:003.8[facility] HermannCHEM VIEME6399-19-56 16:21:0022 [facility]annCHEM [id number] 16:21:0018[facility] HermannCHEM PANEL 2020-03-17 16:21:50103Msoggngp HermannCHEM FJVCT8291-90-70 16:21:000.2[facility]annI Lumbar Spine Wo Dqvsbmrt1820-15-21 00:27:43Hm Interface, Radiology Results 03/06/2020 12:30 AM CDTFormatting of this note might be di fferent from the original.Exam: MRI of the lumbar spine without contrastHistory: Back pain, numbness, postop lumbar decompressionComparison studies: MRI of the lumbar spine January 22, 2020Technique: Multiplanar multisequence MRI of the lumbar spine.Contrast: NoneComplications: NoneFINDINGS:Number of non-rib bearing lumbar vertebral bodies: 5.Alignment: Normal lordosis.No scoliosis.Soft tissues: No signal abnormalities.Posterior paraspinal muscles: Well preserved. No signal abnormalities.Conus medullaris:Normal, ends at T12-L1.Cauda equina: No masses or arachnoiditis.Laminectomy changes at L3-L4 and L4-Y2Bhemnlqhu: No fractures, infection or neoplasm.Degenerative changes:L1-L2: No abnormalities.L2-L3: No abnormalities.L3-L4:Disc degeneration with loss of T2 signal.. Posterior decompression. Mild diffuse disc bulge without significant canal stenosis. Patent bilateral foramina.L4-L5: Disc degeneration with loss of T2 signal. Decrease in size of the central disc protrusion. Posterior decompression. Grossly patent canal and foramina, improved from previous exam.L5-S1: Patent canal and foramina.Sacrum:Symmetric. No signal abnormalities.IMPRESSION:1. Laminectomy changes at L3-L4 and L4-L5 with expected appearance.2. Decreased in size of the central disc protrusion at L4-L5 with improved patencyof the canal. Patent canal and foramina at the lumbar spine..Willy MethodistFL < 1 Hour 2020-01-28 10:00:07Hm Interface, Radiology Results 01/28/2020 10:03 AM CDT Examination: [place] < 1 HOURClinical history: Back pain, radiculopathyFindings:Fluoroscopy was provided for lumbar decompression.Fluoroscopy time: 0.1 minutes number of fluoroscopic images obtained: 1 IMPRESSION: C-arm Fluoroscopy under 1 hour was provided in the OR for the referring physician. A radiologist was not present during the procedure. Refer to the Operative report issued by the performing provider for procedure details.[id number] IqijwxwioVtuczb3737-01-93 08:00:11Diane Ramachandran MD 01/28/2020 8:01 AMAirwayDate/Time: 01/28/2020 7:38 AMPerformed by: Diane Ramachandran MDAuthorized by: Diane Ramachandran MD Location: ORUrgency: ElectiveDifficult Airway: No Anesthesiologist: Diane Ramachandran MDPerformed by: anesthesiologistPreoxygenated with 100% O2: Yes C-spine Precautions Maintained Throughout: Yes Mask Ventilation: Not attemptedFinal Airway Type: Endotracheal airwayFinal Endotracheal Airway: ETTCuffed: Yes TechniqueUsed: Direct laryngoscopyInsertion Site: OralBlade Type: MacintoshLaryngoscope Blade/Videolaryngoscope Blade Size: 3ETT Size (mm): 7.0Cuff at minimum occlusion pressure: Yes Measured from: LipsETT to Lips (cm): 22Placement Verified by: CO2 detection, direct visualization and equal breath sounds Laryngoscopic view: Grade I - full view of glottisModified RSI: Yes Number of Attempts at Approach: 1 Atraumatic, easy intubationCadott KishanistVIBRA [facility] Lumbar Spine W Wo [id number] 15:16:09Hm Interface, Radiology Results 01/22/2020 3:19 PM CDT EXAMINATION: MRI LUMBAR SPINE W WO CONTRASTCLINICAL HISTORY: intractable low back painCOMPARISON: MRI lumbar spine dated October 24, 2019TECHNIQUE: Multiplanar multisequence pre and post contrast enhanced examination was performed of the Lumbar spine.FINDINGS:Numbering assumes that the last visualized functional disc to be L5-S1.There is normal lordosis. Vertebral body heights are maintained without acute fracture. No focal significant marrow signal abnormality is appreciated.Soft tissues shows no mass, adenopathy or aneurysm. No abnormal enhancing lesions identified on postcontrast images.The partially visualized spinal cord and the conus are unremarkable. Axial images through the disc spaces demonstrate the following:T12-L1: No significant posterior disc disease, spinalcanal, lateral recess or neural foraminal stenosis.L1-L2: No significant posterior disc disease, spinal canal, lateral recess or neural foraminal stenosis.L2-L3: No significant posterior disc disease, spinal canal, lateral recess or neural foraminal stenosis.L3-L4: There is disc desiccation with disc bulge and facet hypertrophy. There is mild narrowing of the canal and lateral recess. Facet spurring and disc osteophyte changes results in mild bilateral foraminal narrowing. Findings are grossly stable.L4-L5: There is disc desiccation with a broad-based posterior central protrusion measuring 3 mm with a posterior central annular fissure again identified. There is mild narrowing of the lateral recesses. The ventral thecal sac remains patent at 7 mm. Facet spurring and disc osteophyte changes resultsin mild right and minimal left foraminal narrowing. Findings are stable.L5-S1: No significant posterior disc disease, spinal canal, lateral recess or neural foraminal stenosis.The partially visualized upper sacrum is unremarkable.IMPRESSION: There is disc disease again noted at L4-5 and L5-S1 with mild stenosis as detailed above. No new or progressive changes identified.[facility] [id number] 23:57:16Hm Interface, Radiology Results 01/22/2020 12:00 AM CDT EXAMINATION: US PELVIC TRANSABDOMINAL, US PELVIC TRANSVAGINALCLINICAL HISTORY: left flank and llq pain hx of renal stent and ovarian torsion with oophorectomy on the rightCO MPARISON: US 12/14/2019.TECHNIQUE: Transabdominal and endovaginal sonographic images of the pelvis were obtained. Grayscale, color Doppler, and spectral waveform analysis of the ovarian vessels was performed.FINDINGS:The uterus is anteverted, measures 8.0 x 3.8 x 4.2 cm. Nonspecific cyst or fluid at the left uterine fundus measuring 1.3 cm. Otherwise, no uterine masses. Cervix is normal. Endometrium is normal; endometrial stripe measures 1.0 cm. The right ovary is absent.The left ovary measures 3.5 x 2.0 x 1.7 cm. Normal Doppler flow was present.No adnexal masses.No visualized free pelvic fluid. IMPRESSION:Right ovary is absent. Left ovary within normal limits. Otherwise unremarkable transabdominal and endovaginal pelvic ultrasound examination.[facility]-[id number] [facility] Pelvic Emzqdjvxpwtjwm2506-66-98 23:57:16Hm Interface, Radiology Results 01/22/2020 12:00 AM CDT EXAMINATION: US PELVIC TRANSABDOMINAL, US PELVIC TRANSVAGINALCLINICAL HISTORY: left flank and llq pain hx of renal stent and ovarian torsion with oophorectomy on the rightCOMPARISON: US 12/14/2019.TECHNIQUE: Transabdominal and endovaginal sonographic images of the pelvis were obtained. Grayscale, color Doppler, and spectral waveform analysis of the ovarian vessels was performed.FINDINGS:The uterus is anteverted, measures 8.0 x 3.8 x 4.2 cm. Nonspecific cyst or fluid at the left uterine fundus measuring 1.3 cm. Otherwise, no uterine masses. Cervix is normal. Endometrium is normal; endometrial stripe measures 1.0 cm. The right ovary is absent.The left ovary measures 3.5 x 2.0 x 1.7 cm. Normal Doppler flow was present.No adnexal masses.No visualized free pelvic fluid. IMPRESSION:Right ovary is absent. Left ovary within normal limits. Otherwise unremarkable transabdominal and endovaginal pelvic ultrasound examination.[facility]-[id number] [facility]als of [facility] Abdomen Pelvis W Cpeamnxr9512-47-78 22:59:02Hm Interface, Radiology Results 01/21/2020 11:02 PM CDT EXAM: CT ABDOMEN PELVIS W CONTRASTCLINICAL HISTORY: left flank and llq pain hx of renal stent and ovarian torsion with oophorectomy on the rightTECHNIQUE: Multidetector CT of the abdomen and pelvis was performed following intravenous administration of iodinated contrast with multiplanar reformats.CT scans are performed using radiation dose reduction techniques (iterative reconstruction and/or automated exposure control). Technical factors are evaluated and adjusted to ensure appropriate moderation of exposure. Automated dose management technology is applied to adjust radiation exposure while achieving a diagnostic quality image.COMPARISON: 12/14/2019 FINDINGS:Lung bases: Dependent atelectasis. Otherwise unremarkable.Liver: No evidence for suspicious focal hepatic lesion.Gallbladder and biliary: Unremarkable. Pancreas: No focal pancreatic lesion identified. No pancreatic duct dilatation.Spleen: Unremarkable.Gastrointestinal: Stomach is unremarkable in appearance. Large and small bowel are normal in caliber. Nondilated, air-filled, normal appendix is seen. Minimal/mild amount of scattered colonic stool identified.Peritoneum: No ascites or free air.Adrenals: Unremarkable. Kidneys and ureters: Left renal upper pole cyst measuring approximately 1 cm. A couple additional tiny hypodensities are likely reflective of cysts, for example at the interpolar left kidney and right renal upper pole. Right renal upper pole scarring. Question of a punctate, less than 1.5 mm nonobstructing calyceal calculi within the left renal upper pole/interpolar left kidney (axial image 71, series 301).There is no evidence for large irregular renal mass, obstructing calculi, hydronephrosis, or hydroureter.Urinary bladder: Unremarkable.Reproductive organs: Uterus is unremarkable in appearance per CT.Lymph nodes: No enlarged lymph nodes in the abdomen or pelvis.Vascular: Minimal scattered atherosclerotic changes of the abdominal aorta and major branch vessels.Abdominal wall: Unremarkable.Bones: No acute osseous abnormality identified.IMPRESSION:1.Mild amount of scattered colonic stool seen. Otherwise no CT evidence for acute abdominopelvic process.2.Bilateral renal cysts measuring up to 1.0 cm the left. Question of a punctate, less than 1.5 mm nonobstructing calyceal calculi within the left renal upper pole/interpolar left kidney (axial image 71, series 301).3.Additional chronic findings as detailed above.[id number] MethodistUrine twvoamw6153-13-40 21:40:44 Test Item Value Reference Range Interpretation Comments Urine culture (test SEE COMMENT Bacteriu michaela screen code = [id number]) negative. [facility] Abdomen Wo Myeglnuz5504-38-06 23:38:15Hm Interface, Radiology Results 12/15/2019 11:41 PM CDT EXAMINATION: MRI ABDOMEN WO CONTRASTCLINICAL HISTORY: dilated right ureter no stones intractable pain.TECHNIQUE: Multiplanar multisequence MR images of the abdomen were obtained without contrast. The lack of intravenous contrast reduces the sensitivity of detecting solid organ disease.COMPARISON: CT from 12/14/2019 IMPRESSION: Liver: The liver is normal. No focal mass.Gallbladder/Biliary: The gallbladder is normal. There is no evidence of intra or extrahepatic biliary ductal dilatation. No evidence of choledocholithiasis. Common bile duct measures 4 mm.Spleen: The spleen is not enlarged.Pancreas: Pancreas is unremarkable.Adrenal Glands: The adrenal glands are unremarkable.Kidneys: There are couple of cysts in the left kidney larger measuring 1.5 cm. Several tiny cysts present in the right kidney measuring up to 5 mm. There is mild dilation of the right renal pelvis without caliectasis. There is minimal dilation of the right ureter relative to the left. Vascular: The abdominal aorta is nonaneurysmal.Nodes: No enlarged retroperitoneal or mesenteric lymphadenopathy.Bowel: No bowel obstruction or inflammatory changes.Ascites/fluid collections: No ascites or fluid mariama ections.Bone marrow:No suspicious marrow signal abnormality identified.Summary:1.Mild dilation of the right renal pelvis without significant caliectasis and minimal asymmetric dilation of the visualized right ureter.2.Multiple bilateral renal cysts measuring up to 1.5 cm in the left kidney.[facility] MethodistCT Thoracic Spine Wo Tjizdvbe7074-24-76 07:07:50Hm Interface, Radiology Results - 12/15/2019 7:10 AM CDT EXAMINATION: CT THORACIC SPINE WO CONTRASTCLINICAL HISTORY: worsening backpain evaluate for compression fracturesCOMPARISON: NoneTECHNIQUE: Noncontrast enhanced axial images of the thoracic spine were obtained with coronal and sagittal reconstructed algorithms. CT imagingwas performed with iterative reconstruction technique and/or automated exposure control to reduce radiation dose.FINDINGS:Vertebral body heights are maintained. There is no evidence of compression fractures. No acute fractures or traumatic malalignment is present.Alignment is maintained. No suspiciousintraosseous lesions are present. There is disc or focal posterior longitudinal ligament calcification seen at the level of T5-T6, without resulting in high-grade spinal canal narrowing.No posterior disc disease is otherwise seen. No spinal canal or neural foraminal narrowing are present.Pre and paraspinal soft tissues are unremarkable.Minimal subpleural atelectasis is seen in bilateral partially imaged lungs.Small subcentimeter bilateral thyroid nodules are seen.IMPRESSION: No significant abnormalities of thoracic spine. No specific finding to explain patient's back pain.[id number] MethodistUS Pelvic Svefizt1024-88-94 15:08:39Hm Interface, Radiology Results Incoming 12/14/2019 3:11 PM CDT EXAMINATION: US PELVIC DOPPLERCLINICAL HISTORY: Adnexal mass suspected initial examCOMPARISON: Pelvic ultrasound November 06, 2019.TECHNIQUE: Transabdominal and endovaginal son ographic images of the pelvis were obtained. Grayscale, color Doppler, and spectral waveform analysis of the ovarian vessels was performed.IMPRESSION:No ovarian or adnexal mass.2.6 cm hemorrhagic cyst of the left ovary.FINDINGS: Uterus is anteverted measuring 7.5 x 4.0 x 4.0 cm. No uterine mass is iden tified. Nabothian cervical cysts are again seen.Endometrium is normal thickness measuring 9 mm. Trace anechoic fluid is observed within the endometrial cavity.Left ovary is normal appearance measuring 4.1 x 3.0 x 2.1 cm. Follicles are present in a 2.6 cm follicle contains blood products. Color and spectral Doppler shows normal blood flow. No evidence of torsion.Status-post right oophorectomy.No free fluid or fluid collection.[facility]-[id number] [facility] US Wplhefrwbjb3773-34-79 14:47:42Hm Interface, Radiology Results Incoming 12/14/2019 2:50 PM CDT EXAMINATION: US GALLBLADDERCLINICAL HISTORY: Abd mass nonpulsatile palpableTECHNIQUE: Sonographic imaging over the right upper quadrant with attention to gallbladder was performed.COMPARISON: None.IMPRESSION:1.A small amount of sludge is present in the gallbladder. Thereare no gallstones. No pericholecystic fluid or sonographic Mcgovern's sign was elicited.2.The common bi le duct is normal in caliber and measures 5 mm.3.The main portal vein is patent with a diameter of 1.0 cm. There is normal hepatopedal directional flow within the main portal vein.SUMMARY:A small amount of sludge is present in the gallbladder. No gallstones or evidence of acute cholecystitis.[facility]-[id number] [facility] Renal Stone Oxgpwkqk8463-31-19 10:44:43Hm Interface, Radiology Results Incoming - 12/14/2019 10:47 AM CDT EXAMINATION: CT RENAL STONE PROTOCOLCLINICAL HISTORY: r kidney stoneTECHNIQUE: Multiple axial images of the abdomen and pelvis were obtained without intravenous administration of iodinated contrast. Sagittal and coronal computerized reformatted images were also obtained. The lack of intravenous contrast reduces the sensitivity of detecting solid organ disease.Automatic exposure control or iterative reconstruction techniques used to reduce dose.COMPARISON: 11/06/2019Impression:1.Without IV contrast evaluation of solid organs of upper abdomen is limited. Left-sided nephrolithiasis involving the lower pole calyx measuring 2 mm. No hydronephrosis. No right-sided stone noted. Right kidney again show areas of cortical thinning and mild ureteral dilatation again seen without ureteral stones. Bladder is unremarkable.2.Lung bases are clear. Bowel gas pattern is nonobstructive.Appendix is unremarkable. Moderate retained stool scattered throughout the colon. No diverticulitis.Osseous structures are intact.Summary:1.Stable findings with left nephrolithiasis and no evidence for hydronephrosis. Mild right ureteral dilatation again seen without right-sided stones.[facility]-[id number] MethodistECG 12 bvgr1758-33-00 17:37:44 Test Item Value Reference Range Interpretation Comments Ventricular rate (test 83 code = 253) Atrial rate (test code 83 = 255) WV interval (test code 122 = 266) QRSD interval (test 92 code = 260) QT interval (test code 366 = 264) QTC interval (test code 430 = 265) P axis 1 (test code = 44 267) QRS axis 1 (test code = -37 268) T wave axis (test code 25 = 270) EKG impression (test Normal sinus code = 273) rhythm-Left axis deviation-Abnormal ECG-In automated comparison with ECG of 17-DEC-2015 18:45,-Vent. rate has decreased BY 55 BPM- [place] MethodistCT Abdomen Pelvis Wo Fqpuerdr9045-25-58 16:46:29Hm Interface, Radiology Results 11/04/2019 4:49 PM CDT EXAMINATION: CT ABDOMEN PELVIS WO CONTRASTCLINICAL HISTORY: right cva tenderness recent stent removal over the last one weekTECHNIQUE: Multiple axial CT images of the abdomen and pelvis are obtained without the use of intravenous contrast. Coronal and sagittal 3-D reconstructions are obtained.CT scans are performed using radiation dose reduction techniques. Technical factors are evaluated and adjusted to ensure appropriate moderation of exposure. Automated dose management technology is applied to adjust radiation exposure while achieving a diagnostic quality image.COMPARISON: 10/21/2019FINDINGS:Abdomen:The evaluation of the solid organs is limited without the use ofintravenous contrast.The visualized LOWER LUNG ZONES are clear.The LIVER does not have any solid masses. There is no intrahepatic biliary dilatation.The GALLBLADDER is unremarkable..The SPLEEN and ADRENAL GLANDS have a normal CT appearance.The PANCREAS does not have any focal inflammatory change.The ABDOMINAL AORTA has no aneurysmal dilatation. There is no retroperitoneal adenopathy.The KIDNEYS demonstrates no hydronephrosis within the right kidney. There is no perinephric stranding. The right ureter does not have stones.The left kidney does not have any hydronephrosis. There is a 2 mm nonobstructing stone seen within the left kidney.CT PELVIS: There is no evidence of any pneumoperitoneum. Stomach does not have any wall thickening. There is no bowel obstruction nor any dilated loops of bowel. The appendix is unremarkable.There is extensive colonic fecal retention present. The colonic wall does not have any focal inflammation.The uterus is present. There are no bladder stones present. Thereis no inguinal hernia present.IMPRESSION:1. The right kidney does not have any stones or any hydronephrosis. There is no stent seen within the right kidney.2. The left kidney has a 2 mm nonobstructing stone. There is no hydronephrosis present. The left ureter does not have any stones.3. There are no bladder stones present.4. There is nonspecific inguinal adenopathy seen within the groinSTJO-[id number] MethodistFL Pyelogram Retrograde 2019-10-23 18:50:19Hm Interface, Radiology Results 10/23/2019 6:53 PM CDT EXAMINATION: [place] PYELOGRAM RETROGRADECLINICAL HISTORY: Renal stoneCOMPARISON: None.FINDINGS:Fluoroscopy was provided for retrograde pyelography. Right ureteral stent is present.IMPRESSION:1. Fluoroscopy was provided for retrograde pyelography.2..Fluoroscopy time: 0.7 minutes number of fluoroscopic images obtained: 10Total Dose 4930.9 wShkr2Rrlycxu GzoququfbTkwutm3157-54-56 16:41:19MoJonathan perdomo MD 10/23/2019 4:41 PMAirwayDate/Time: 10/23/2019 4:37 PMPerformed by: Jonathan Garcias MDAuthorized by: Jonathan Garcias MD Location: ORUrgency: ElectiveDifficult Airway: No Preoxygenated with 100% O2: Yes C-spine Precautions Maintained Throughout: Yes Mask Ventilation: Easy maskFinal Airway Type: Endotracheal airwayFinal Endotracheal Airway: ETTCuffed: Yes Technique Used: Video laryngoscopyDevices/Methods Used in Placement: Intubating styletInsertion Site: OralBlade Type: MillerLaryngoscope Blade/Videolaryngoscope Blade Size: 2ETT Size (mm): 7.0Cuff at minimum occlusion pressure: Yes Measured from: LipsETT to Lips (cm): 22Placement Verified by: CO2 detection and direct visualization Laryngoscopic view: Grade I - full view of glottisHouston MethodistVIRAL - DWHEATWK1265-87-41 16:11:00Negative (09/08/16 11:11 AM)[facility] - YBAUAEIZ5809-80-52 16:11:00Negative (09/08/16 11:11 AM)[facility] RLTVQ4640-30-90 04:32:00Negative (05/21/16 10:32 PM)[facility] DJIGA7032-26-35 04:32:00None Seen (05/21/16 10:32 PM)[facility] ANZCE9712-22-10 04:32:00Performed (05/21/16 10:32 PM)[facility] RDRHG3788-24-70 04:32:000.2[facility] YFTSD5459-50-82 04:32:00 Trace *ABN*(05/21/16 10:32 PM)[facility] PDWDT7102-36-97 04:32:00 Negative (05/21/16 10:32 PM)[facility] HBUFT8270-27-25 04:32:00 Negative *NA*(05/21/16 10:32 PM)[facility] PONLD6084-77-51 04:32:00Negative (05/21/16 10:32 PM)[facility] HVVVS0800-94-47 04:32:00Negative *NA*(05/21/16 10:32 PM)[facility] STOOL 2016-05-22 04:32:00Negative (05/21/16 10:32 PM)[facility] STOOL 2016-05-22 04:32:00 Test Item Value Reference Range Interpretation Comments UA pH (test code = UA pH) 6.5 1 5.0-8.0 [facility] PRNOA5129-04-25 04:32:00<=1.005 *NA*(05/21/16 10:32 PM)[facility] SLRWO7032-10-85 04:32:00Yellow *NA*(05/21/16 10:32 PM)[facility] AVCCZ9025-55-57 04:32:00Clear (05/21/16 10:32 PM) [facility] IDIG6769-43-96 04:32:00Negative (05/21/16 10:32 PM) [facility]annCARDIAC TZHYCOS4063-36-34 02:53:00<0.8[facility]annCARDIAC LWVUNIR8969-37-29 02:53:00<0.02[facility]annCARDIAC KJWIBGP6320-81-90 02:53:00<0.5[facility]annCARDIAC NKSIEMA2804-85-42 02:53:0059[facility] HermannCHEM KVLHI4782-87-43 02:53:001.8[facility] HermannCHEM WQOJA2477-85-05 02:53:47391Wrlmpshp HermannCHEM VYDDJ3241-43-72 02:53:0036[facility] HermannCHEM SRRFL7559-14-17 02:53:03338Ljwquuun HermannCHEM AYXIE2493-84-73 02:53:000.2 [facility]annCHEM YTNKA6449-72-40 02:53:008.2[facility]annCHEM PANEL 2016-01-01 02:53:0028[facility] HermannCHEM GEIIH4027-06-75 02:53:009.2[facility]annCHEM MSWIX2257-04-26 02:53:10708Xgrgpbmx HermannCHEM WOZHT2762-67-54 02:53:000.74[facility] HermannCHEM KUHAK3778-32-34 02:53:23603Goysnocx HermannCHEM MJNWT8686-73-28 02:53:0093[facility]annCHEM WIOFS7624-21-57 02:53:003.5 [facility]annCHEM FSTMQ0735-37-45 02:53:007[facility]annCHEM PANEL 2016-01-01 02:53:000.9[facility]annCHEM DYEVP8466-13-27 02:53:0011.5[facility]annCHEM MMYXK2689-99-06 02:53:009[facility]annCHEM YMJYW7244-09-82 02:53:004.3[facility]annCHEM PKNTF5834-33-30 02:53:0025[facility] HermannCHEM NXUNG5140-05-64 02:53:003.9[facility] HermannDRUG KALHNM9889-49-16 02:53:00 Negative *NA*(12/31/15 9:53 PM)[facility]annDR[facility] SHQRUY1069-58-96 02:53:00 Negative *NA*(12/31/15 9:53 PM)[facility]annDR[facility] PWRKMK9345-45-71 02:53:00 Negative *NA*(12/31/15 9:53 PM)[facility]annDR[facility] TLNJGU5031-93-77 02:53:00 Negative *NA*(12/31/15 9:53 PM)[facility]annDR[facility] CTXROC3719-25-14 02:53:00 Negative *NA*(12/31/15 9:53 PM)[facility]annDR[facility] FMDGVV3692-84-66 02:53:00 Negative *NA*(12/31/15 9:53 PM)[facility]annDR[facility] RWKYTD4584-89-56 02:53:00 Negative *NA*(12/31/15 9:53 PM)[facility]annDRUG PMUMUM9084-79-66 02:53:00See Note *NA*(12/31/15 9:53 PM)[facility] CodkgwjIRNKIFACBRKKO8954-93-93 02:53:00 Negative *NA*(12/31/15 9:53 PM)[facility] RqcioknKREHDWDSHO4868-37-03 02:53:001.5 [facility] OhccampBUCPEMGXZM7174-27-16 02:53:000.1[facility] HermannHEMATOLOGY 2016-01-01 02:53:000.1[facility] QelxqpdPPYGJQULOG9580-49-60 02:53:0061.4[facility] VixdobcMPALTWBVGE7184-39-36 02:53:007.4[facility] BcjhpwjHNGIQWADPJ3971-36-25 02:53:0029.1[facility] OvlepnpMPKXKDUBJH5394-76-71 02:53:000.6[facility] WNYPQJZAYX0889-68-35 02:53:005.8[facility] HekvxotLUNWSSWLFM5240-72-01 02:53:000.7 [facility] PgzfhqgRVEBUKCSQA1916-63-89 02:53:002.8[facility] HermannHEMATOLOGY 2016-01-01 02:53:98412Oyfaplpt IsxxledZHPJEZXTIH9717-22-10 02:53:0015.0[facility] EzdjrmsKSTDRGFHFC7310-62-09 02:53:007.8[facility] LjlfbukAQUTBNMMFP1610-32-06 02:53:0010.9[facility] PlrjkrpVZISKFQELC7159-17-86 02:53:0034.0[facility] HEICSENLKK3838-98-57 02:53:0074.1[facility] FcqffamOQHHHRUQIR7322-63-44 02:53:00 32.2[facility] MckivdrKMMNOHFBIU6122-66-75 02:53:00 Test Item Value Reference Range Interpretation Comments MCH (test code = MCH) 23.8 pg 27.0-31.0 [facility] AjwydyfGSQAAXPBPP7814-79-71 02:53:009.5[facility]annHEMATOLOGY 2016-01-01 02:53:004.58[facility] HermannCHEM RQKMC0225-82-68 03:38:43356Kdjbjxaj WfxcimcFKUFCAOVMNUJ2424-59-15 03:38:2712.0[facility] NduwdmdEMULKZBFVEFV7321-32-12 03:38:270.9[facility] BrlqqrxZDALMFXBISXB5722-08-35 03:38:2710[facility] AJZGCKHIVSPR8496-16-87 03:38:273.7[facility] IhtaioyHMDIZZKZJZBQ6630-05-54 03:38:2792[facility] TstjteiMDKHIRJCCKIV6334-70-43 03:38:278.2[facility] QMMGNOHVBUFM9517-49-99 03:38:277.1[facility] AsnzzypJLGDYLSGLKHB1030-05-31 03:38:270.1[facility] PfplsesHNVQRCGHQZSW2362-22-77 03:38:2717[facility] BZMKKSYRKQDZ9157-61-53 03:38:69576Pultajww UhajraqBAZZFTJMWMOT1006-93-43 03:38:2724[facility] UryydmrBLONXFCDPBSX8513-48-74 03:38:270.83[facility] QBCENPWVSHQF5218-13-05 03:38:41359Dxikfcgo LfhljteGFGNSRQZEOHY1596-18-55 03:38:278[facility] XqvrbaiSISSMLHFDVUQ8077-96-50 03:38:76194Ammzwzax Bruno GNMSKTFAENIW1756-63-83 03:38:274.0[facility] DmzzjssVYYUCCIMLNYB1245-50-50 03:38:273.4[facility] IqawpgvLLVSMFMKTLMU6824-34-48 03:38:2726[facility] BYXMCGWVPFGG5668-32-30 03:38:74158Kvgmohfy JoeqnmgSEWXQTLNOBGXU5131-68-74 03:38:27Negative *NA*(11/08/15 10:38 PM)[facility] SjfcdtkAFJATJKJEI3383-89-35 03:38:2733.3[facility] KlzudvnQDVGXBRRXK9546-05-62 03:38:2711.1[facility] EXXSFIEWGY4401-23-66 03:38:277.2[facility] XjoedfnNRODEJZMTI4653-77-29 03:38:18561 [facility] NifnyzwXJNYKRHIOP1735-39-61 03:38:2777.1[facility]annHEMATOLOGY 2015-11-09 03:38:27 Test Item Value Reference Range Interpretation Comments MCH (test code = MCH) 25.8 pg 27.0-31.0 [facility] CkdsbksEKKZZHJLSU3850-46-20 03:38:2733.4[facility]annHEMATOLOGY 2015-11-09 03:38:2716.3[facility] GsmexkqIYPYCBKZFJ6536-57-89 03:38:274.31[facility] PukdlqgJQNZNMVUVV8075-51-53 03:38:279.4[facility] UhjatyyHAOGUETFKR6050-05-64 03:38:270.1[facility] HydfrmiJBYGNEAFSG8009-68-91 03:38:2760.0[facility] KMRQEOPOCU3850-20-90 03:38:275.8[facility] FoawugyEYLCLRLSGC4503-62-59 03:38:27 31.4[facility] OebmtmvWXOULEPUYO5572-69-83 03:38:270.2[facility]annHEMATOLOGY 2015-11-09 03:38:270.5[facility] ZhkwkqpJOGEDYTVST0037-63-93 03:38:272.1[facility] PffvediDRJEIPGMPC3674-31-94 03:38:270.7[facility] MsbqxvlTDDJHXJOJH6298-20-90 03:38:273.0[facility] CewyyaiEXAANTJHBG5112-66-08 03:38:275.6[facility] HermannCHEM OFTRN2589-37-04 17:44:72791Stkvrxib HermannCHEM TYACH5013-66-13 17:44:58985 [facility]annCHEM YIQGW0744-62-96 17:44:007.9[facility] HermannCHEM PANEL 2015-11-07 17:44:0018Mem[facility] HermannCHEM JHAFH8700-64-39 17:44:000.2[facility] HermannCHEM JYUAV6956-06-49 17:44:003.8[facility] HermannCHEM HDAVM3708-42-25 17:44:0024[facility] HermannCHEM FUNCH1609-51-40 17:44:02443Dqxhzwjk HermannCHEM AQWGT0661-67-71 17:44:0024[facility] HermannCHEM XSPHZ9598-15-17 17:44:008.8 [facility]annCHEM IJWCS4228-64-02 17:44:30872Xksuduls HermannCHEM PANEL 2015-11-07 17:44:008[facility] HermannCHEM MMBLB8935-65-45 17:44:000.74[facility] HermannCHEM NPPMY8610-43-66 17:44:0096[facility] HermannCHEM ELXZR7063-44-89 17:44:74128Khofyagg HermannCHEM HIETJ8662-84-70 17:44:003.6[facility] HermannCHEM TXMZB2076-75-11 17:44:0011[facility] HermannCHEM VTNYD6001-60-48 17:44:004.1 [facility]annCHEM GFXNL7382-39-57 17:44:000.9[facility] HermannCHEM PANEL 2015-11-07 17:44:0014.6[facility] HermannDRUG DDETTP0495-37-76 17:44:00Negative *NA*(11/07/15 12:44 PM)[facility]annDRUG PSHVKX3755-88-54 17:44:00Negative *NA*(11/07/15 12:44 PM)[facility] HermannDRUG TDQCCS7831-70-78 17:44:00Negative *NA*(11/07/15 12:44 PM)[facility]annDRUG QQZEOE9288-20-45 17:44:00Negative *NA*(11/07/15 12:44 PM)[facility]annDRUG UPFNSW5967-67-74 17:44:00Negative *NA*(11/07/15 12:44 PM)[facility]annDRUG SKSJNS2444-23-41 17:44:00Negative *NA*(11/07/15 12:44 PM)[facility] HermannDRUG NPONXL3438-47-35 17:44:00Negative *NA*(11/07/15 12:44 PM)[facility]annDR[facility] SQWFHX6647-59-58 17:44:00See Note *NA*(11/07/15 12:44 PM)[facility] OvaakdfMAKQGXMYSTXBK7677-92-86 17:44:00Negative *NA*(11/07/15 12:44 PM)[facility] CsqvhsyFHNCSEVDLN7475-36-85 17:44:0051.5[facility] YtsccksUPNZPVYBSF3679-12-90 17:44:0038.3[facility] JkjymxkRVMAVHKPKD8623-65-57 17:44:006.8[facility] FeskngoPSGAPUQRNM2633-60-00 17:44:002.7[facility] KWTWSQBBBZ5430-77-95 17:44:003.5[facility] QmoctxcOQPWZXLTVP7824-43-55 17:44:002.5 [facility] QcvzvvnGDNZLBMXCB4866-51-22 17:44:000.9[facility] HermannHEMATOLOGY 2015-11-07 17:44:000.5[facility] AankgsfFUYXEZWCZW2093-70-32 17:44:000.1[facility] FcxpzvoQNCLGNMXBS6556-79-80 17:44:000.2[facility] WhhrfwpKXPILBQKDO7027-30-78 17:44:007.0[facility] YbivruvHIULEKTNSL3530-31-70 17:44:0035.9[facility] BDPXCNNHCK6565-78-36 17:44:0077.7[facility] CqjysjvIKJVKITVGZ7342-36-57 17:44:00 11.6[facility] YtmnsgkYYQAAFYYDS3391-84-18 17:44:004.63[facility]annHEMATOLOGY 2015-11-07 17:44:22777Avgxkrru LldxgmiBBHOKIKSVJ9518-71-64 17:44:0032.2[facility] WukeaarDLIITIMLKX7014-47-03 17:44:00 Test Item Value Reference Range Interpretation Comments MCH (test code = MCH) 25.0 pg 27.0-31.0 [facility] QzboirmUBGCPICCBZ9531-93-28 17:44:0017.0[facility] HermannHEMATOLOGY 2015-11-07 17:44:007.7[facility] AND FHYHY1450-27-32 17:44:00Clear (11/07/15 12:44 PM)[facility] JCTVH0893-92-69 17:44:00 Test Item Value Reference Range Interpretation Comments UA pH (test code = UA pH) 6.0 1 5.0-8.0 [facility] [id number] 17:44:00Colorless (11/07/15 12:44 PM) [facility] [id number] 17:44:00<=1.005 *NA*(11/07/15 12:44 PM)[facility] [id number] 17:44:00Trace *ABN*(11/07/15 12:44 PM)[facility] [id number] 17:44:00Negative (11/07/15 12:44 PM) [facility] [id number] 17:44:00Negative (11/07/15 12:44 PM) [facility] [id number] 17:44:000.2[facility] [id number] 17:44:00Negative *NA*(11/07/15 12:44 PM)[facility] [id number] 17:44:00Negative (11/07/15 12:44 PM)[facility] [id number] 17:44:00Negative *NA*(11/07/15 12:44 PM)[facility] [id number] 17:44:00Negative (11/07/15 12:44 PM)[facility] [id number] 17:44:00None Seen (11/07/15 12:44 PM)[facility] [id number] 17:44:00Performed (11/07/15 12:44 PM)[facility]
[2020-09-20 08:53] LABS: Absolute Lymphocytes (CBC) 1.6 K/uL (0.7-4.9); Basophils % 1.1 % (0-1.3); Hematocrit 34.8 % (36.0-45.0); MPV 7.6 fL (7.6-11.3); RBC Red Blood Cell Count 4.62 M/uL (3.86-4.86)
[2020-09-20] MEDS ORDERED: PROMETHAZINE INJ 25 MG/ML AMP ONE (08:55)
[2020-09-20] MEDS ORDERED: FAMOTIDINE 20 MG/2 ML VIAL IV ONE (08:56)
[2020-09-20] MEDS ORDERED: MORPHINE 4 MG/ML SYR ONE (08:56)
[2020-09-20 09:11] LABS: ALT/SGPT 24 U/L (12-78); AST/SGOT 14 U/L (15-37); Albumin 3.8 g/dL (3.4-5.0); Alkaline Phosphatase 123 U/L (45-117); BUN Blood Urea Nitrogen 11 mg/dL (7-18); Bicarbonate 27 mmol/L (21-32); Bilirubin Direct < 0.1 mg/dL (0-0.2); Bilirubin Total 0.2 mg/dL (0.2-1.0); Glucose Level 92 mg/dL (74-106); Magnesium 2.2 mg/dL (1.8-2.4); NT PRO-BNP 35 pg/mL (<125); Potassium 3.9 mmol/L (3.5-5.1); Protein, Total 7.8 g/dL (6.4-8.2); Sodium Level 143 mmol/L (136-145); Troponin (Emerg Dept Use Only) < 0.02 ng/mL (0.0-0.045)
--- NOTE | 2020-09-20 10:17 | RAD REPORT ---
EXAM DESCRIPTION: CT - Chest Angio - 09/20/2020 10:03 am CLINICAL HISTORY: Chest pain COMPARISON: None. TECHNIQUE: Dynamically enhanced axial 3 mm thick images of the chest were obtained during administra tion of <100> mL Isovue 370 IV contrast. Coronal and oblique reconstruction images were generated and reviewed. Exam utilizes a protocol for optimal evaluation of pulmonary arterial tree. Maximum intensity projections 3D imaging was utilized All CT scans are performed using dose optimization technique as appropriate and may include automated exposure control or mA/KV adjustment according to patient size. FINDINGS: A pulmonary embolus is not seen. A thoracic aortic aneurysm is not noted. An aortic dissection is not seen A pleural effusion is not seen. A pericardial effusion is not seen. A lung consolidation is not present. A 12 millimeter collection of air is present within the anterior main pulmonary artery presumably sec ondary to IV access IMPRESSION: Negative for a pulmonary embolism.
--- NOTE | 2020-09-20 10:17 | RAD REPORT ---
EXAM DESCRIPTION: Lane Single View09/20/2020 8:56 am CLINICAL HISTORY: Chest pain COMPARISON: none FINDINGS: The lungs appear clear of acute infiltrate. The heart is normal size IMPRESSION: No acute abnormalities displayed
[2020-09-20] MEDS ORDERED: METHYLPREDNISOLONE 125 MG INJ ONE (11:14)
[2020-09-20] MEDS ORDERED: KETOROLAC 30 MG/ML INJ ONE (11:15)
--- NOTE | 2020-09-20 12:57 | ER ---
Nurse's Notes [facility] Name: Shakira Marie Age: 40 yrs Sex: Female : 1980 Arrival Date: 09/20/2020 Time: 07:59 Bed 14 Private MD: Diagnosis: Upper back;Hypertensive heart disease;Anxiety disorder, unspecified Presentation: 09/20 08:00 Chief complaint: Patient states: [facility] brought me over here, i am having chest tw2 pains for 3 days, stabbing pain that radiates to my back, i had a mild heart attack before and they started me on these medicines, but i dont know if it is the medicines or my anxiety or stress, i am under a lot of stress. Coronavirus screen: At this time, the client does not indicate any symptoms associated with coronavirus-19. Ebola Screen: Patient denies travel to an Ebola-affected area in the 21 days before illness onset. Initial Sepsis Screen: Does the patient meet any 2 criteria? No. Patient's initial sepsis screen is negative. Does the patient have a suspected source of infection? No. Patient's initial sepsis screen is negative. Risk Assessment: Do you want to hurt yourself or someone else? Patient reports no desire to harm self or others. Onset of symptoms. 08:00 Method Of Arrival: Wheelchair tw2 08:00 Acuity: NAYELY 3 tw2 Triage Assessment: 08:10 General: Appears in no apparent distress. Behavior is anxious. Pain: Complains of pain tw2 in chest Pain radiates to back. EENT: No signs and/or symptoms were reported regarding the EENT system. Neuro: Level of Consciousness is awake, alert, obeys commands, Oriented to person, place, time, situation. Cardiovascular: Reports chest pain, Patient's skin is warm and dry. Respiratory: Airway is patent Respiratory effort is even, unlabored, Respiratory pattern is regular, symmetrical. GI: No signs and/or symptoms were reported involving the gastrointestinal system. : No signs and/or symptoms were reported regarding the genitourinary system. Derm: No signs and/or symptoms reported regarding the dermatologic system. Musculoskeletal: Range of motion: intact in all extremities. 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 - Social history:: Smoking status: Patient reports the use of cigarette tobacco products, smokes one pack cigarettes per day. 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 Screenin:00 Abuse screen: Denies threats or abuse. Nutritional screening: No deficits noted. tw2 Tuberculosis screening: No symptoms or risk factors identified. Fall Risk None identified. Assessment: 08:13 Reassessment: see triage assessment. tw2 08:14 Pain: Pain began 2-3 days ago. tw2 08:48 Reassessment: xray at bedside at this time. tw2 09:04 Reassessment: No changes from previously documented assessment. Patient and/or family tw2 updated on plan of care and expected duration. Pain level reassessed. Patient is alert, oriented x 3, equal unlabored respirations, skin warm/dry/pink. 09:48 Reassessment: pt back from CT at this time, NAD. tw2 10:26 Reassessment: No changes from previously documented assessment. Patient and/or family tw2 updated on plan of care and expected duration. Pain level reassessed. Patient is alert, oriented x 3, equal unlabored respirations, skin warm/dry/pink. 10:29 Reassessment: provider at bedside at this time with results. tw2 11:30 Reassessment: Patient appears in no apparent distress at this time. No changes from tw2 previously documented assessment. Patient and/or family updated on plan of care and expected duration. Pain level reassessed. Patient is alert, oriented x 3, equal unlabored respirations, skin warm/dry/pink. 13:08 Reassessment: Patient appears in no apparent distress at this time. No changes from tw2 previously documented assessment. Patient and/or family updated on plan of care and expected duration. Pain level reassessed. Patient is alert, oriented x 3, equal unlabored respirations, skin warm/dry/pink. Vital Signs: 08:00 BP 127 / 85; Pulse 93; Resp 17; Temp 98.1(O); Pulse Ox 100% on R/A; Weight 79.38 kg tw2 (R); Pain 10/10; 09:04 BP 129 / 83; Pulse 74; Resp 18; Pulse Ox 99% on R/A; tw2 09:06 Pain 9/10; tw2 10:26 BP 109 / 80; Pulse 69; Resp 17; Pulse Ox 100% on R/A; tw2 11:30 BP 103 / 65; Pulse 69; Resp 17; Pulse Ox 99% on R/A; tw2 13:08 BP 102 / 63; Pulse 74; Resp 17; Pulse Ox 99% on R/A; tw2 ED Course: 07:59 Patient arrived in ED. mr 08:00 Jane Banuelos RN is Primary Nurse. tw2 08:00 Дмитрий Christian MD is Attending Physician. kdr 08:02 Placed in gown. Bed in low position. 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 Pulse ox on. NIBP on. tw2 08:02 Arm band placed on. tw2 08:11 Triage completed. tw2 08:14 Patient maintains SpO2 saturation greater than 95% on room air. tw2 08:45 Inserted saline lock: 18 gauge in right forearm, using aseptic technique. ,using tr6 aseptic technique. by Mohini DYKES Blood collected. 08:56 XRAY Chest (1 view) In Process Unspecified. EDMS 10:03 CT Chest Angio In Process Unspecified. EDMS 12:54 Дмитрий Christian MD is Referral Physician. kdr 13:08 No provider procedures requiring assistance completed. IV discontinued, intact, tw2 bleeding controlled, No redness/swelling at site. Pressure dressing applied. Administered Medications: 08:42 Drug: Phenergan (promethazine) 12.5 mg Route: IVP; Site: right forearm; tw2 09:06 Follow up: Response: No adverse reaction tw2 08:45 Drug: morphine 4 mg Route: IVP; Site: right forearm; tw2 09:06 Follow up: Pain 9/10 Adult; Response: No adverse reaction; Pain is decreased; RASS: tw2 Alert and Calm (0) 08:47 Drug: Pepcid (famotidine) 20 mg Route: IVP; Site: right forearm; tw2 09:06 Follow up: Response: No adverse reaction tw2 11:10 Drug: TORadol - (ketorolac) 15 mg Route: IVP; Site: right antecubital; tw2 13:00 Follow up: Response: No adverse reaction; Pain is decreased tw2 11:12 Drug: SOLU-Medrol (methylPrednisoLONE) 125 mg Route: IVP; Site: right antecubital; tw2 13:00 Follow up: Response: No adverse reaction tw2 Outcome: 12:56 Discharge ordered by . kimi 13:09 Discharged to [facility] tw2 13:09 Condition: stable 13:09 Discharge instructions given to [facility] 13:10 Patient left the ED. tw2 Signatures: Dispatcher [employer] EDMS Дмитрий Christian MD MD kdr Rivera, Mary mr Wise, Tara, RN RN tw2 Nohemy Majano RN RN tr6
--- NOTE | 2020-09-20 12:57 | EDPHYS ---
Physician Documentation [facility] Name: Shakira Marie Age: 40 yrs Sex: Female : 1980 Arrival Date: 09/20/2020 Time: 07:59 Bed 14 Private MD: ED Physician Дмитрий Christian HPI: 09/21 07:58 This 40 yrs old Female presents to ER via Wheelchair with complaints of Chest kdr Pain, High Blood Pressure, Blurred Vision. 07:58 The patient or guardian reports chest pain that is located primarily in the anterior kdr chest wall, bilaterally. Onset: gradually, 3 day(s) ago. The pain does not radiate. Associated signs and symptoms: Pertinent positives: dizziness, lightheadedness, palpitations, shortness of breath, Pertinent negatives: abdominal pain, cough. The chest pain is described as aching, dull, a pressure. Duration: The patient or guardian reports a single episode, that is still ongoing, Waxes and wanes. Modifying factors: The symptoms are alleviated by nothing. the symptoms are aggravated by nothing. Severity of pain: At its worst the pain was moderate in the emergency department the pain is unchanged. The patient has experienced similar episodes in the past, a few times, last time in [place], she was having an CO. The patient has not recently seen a physician. She admits to a lot of anxiety but given she had a prior CO that started like this as well, she is concerned.. 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 - Social history:: Smoking status: Patient reports the use of cigarette tobacco products, smokes one pack cigarettes per day. 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 ROS: 09/21 07:58 Constitutional: Negative for fever, chills, and weight loss, Eyes: Negative for injury, kdr pain, redness, and discharge, ENT: Negative for injury, pain, and discharge, Neck: Negative for injury, pain, and swelling, Respiratory: Negative for shortness of breath, cough, wheezing, and pleuritic chest pain, Abdomen/GI: Negative for abdominal pain, nausea, vomiting, diarrhea, and constipation, Back: Negative for injury and pain, : Negative for injury, bleeding, discharge, and swelling, MS/Extremity: Negative for injury and deformity, Skin: Negative for injury, rash, and discoloration, Neuro: Negative for headache, weakness, numbness, tingling, and seizure activity. Allergy/Immunology: Negative for hives, rash, and allergies, Endocrine: Negative for neck swelling, polydipsia, polyuria, polyphagia, and marked weight changes, Hematologic/Lymphatic: Negative for swollen nodes, abnormal bleeding, and unusual bruising. Cardiovascular: Positive for chest pain, of the chest, Negative for edema, orthopnea, palpitations, paroxysmal nocturnal dyspnea. Psych: Positive for anxiety. Exam: 09/20 08:36 ECG was reviewed by the Attending Physician. kdr 09/21 07:58 Constitutional: This is a well developed, well nourished patient who is awake, alert, kdr and in mild distress. Head/Face: Normocephalic, atraumatic. Eyes: Pupils equal round and reactive to light, extra-ocular motions intact. Lids and lashes normal. Conjunctiva and sclera are non-icteric and not injected. Cornea within normal limits. Periorbital areas with no swelling, redness, or edema. Neck: Trachea midline, no thyromegaly or masses palpated, and no cervical lymphadenopathy. Supple, full range of motion without nuchal rigidity, or vertebral point tenderness. No Meningismus. Chest/axilla: Normal chest wall appearance and motion. Nontender with no deformity. No lesions are appreciated. Cardiovascular: Regular rate and rhythm with a normal S1 and S2. No gallops, murmurs, or rubs. Normal PMI, no JVD. No pulse deficits. Respiratory: Lungs have equal breath sounds bilaterally, clear to auscultation and percussion. No rales, rhonchi or wheezes noted. No increased work of breathing, no retractions or nasal flaring. Abdomen/GI: Soft, non-tender, with normal bowel sounds. No distension or tympany. No guarding or rebound. No evidence of tenderness throughout. Back: No spinal tenderness. No costovertebral tenderness. Full range of motion. Skin: Warm, dry with normal turgor. Normal color with no rashes, no lesions, and no evidence of cellulitis. MS/ Extremity: Pulses equal, no cyanosis. Neurovascular intact. Full, normal range of motion. Neuro: Awake and alert, GCS 15, oriented to person, place, time, and situation. Cranial nerves II-XII grossly intact. Motor strength 5/5 in all extremities. Sensory grossly intact. Cerebellar exam normal. Normal gait. Psych: Behavior/mood is pleasant, cooperative, anxious, Affect is flat, Oriented to person, place, time, Patient has no thoughts/intents to harm self or others. Judgement / Insight is normal. Delusions/hallucinations are not present. Vital Signs: 09/20 08:00 BP 127 / 85; Pulse 93; Resp 17; Temp 98.1(O); Pulse Ox 100% on R/A; Weight 79.38 kg tw2 (R); Pain 10/10; 09:04 BP 129 / 83; Pulse 74; Resp 18; Pulse Ox 99% on R/A; tw2 09:06 Pain 9/10; tw2 10:26 BP 109 / 80; Pulse 69; Resp 17; Pulse Ox 100% on R/A; tw2 11:30 BP 103 / 65; Pulse 69; Resp 17; Pulse Ox 99% on R/A; tw2 13:08 BP 102 / 63; Pulse 74; Resp 17; Pulse Ox 99% on R/A; tw2 MDM: 12:56 Patient medically screened. kdr 09/21 07:58 Response to treatment: the patient's symptoms have markedly improved after treatment, kdr patient is well hydrated. Special discussion: Based on the patient's history, exam, and Dx evaluation, there is no indication for emergent intervention or inpatient Tx. It is understood by the patient/guardian that if the Sx's persist or worsen they need to return immediately for re-evaluation. I discussed with the patient/guardian in detail that at this point there is no indication for admission to the hospital. It is understood, however, that if the symptoms persist or worsen the patient needs to return immediately for re-evaluation. 08:03 Data reviewed: vital signs, nurses notes, lab test result(s), EKG, radiologic studies. kdr Counseling: I had a detailed discussion with the patient and/or guardian regarding: the historical points, exam findings, and any diagnostic results supporting the discharge/admit diagnosis, lab results, radiology results, the need for outpatient follow up. 09/20 08:22 Order name: Basic Metabolic Panel; Complete Time: : [facility] 09/20 08:22 Order name: CBC with Diff; Complete Time: : [facility] 09/20 08:22 Order name: LFT's; Complete Time: [facility] 09/20 08:22 Order name: Magnesium; Complete Time: [facility] 09/20 08:22 Order name: NT PRO-BNP; Complete Time: [facility] 09/20 08:22 Order name: PT-INR; Complete Time: [facility] 09/20 08:22 Order name: Troponin (emerg Dept Use Only); Complete Time: [facility] 09/20 08:22 Order name: XRAY Chest (1 view); Complete Time: : [facility] 09/20 08:35 Order name: CT Chest Angio; Complete Time: [facility] 09/20 08:22 Order name: EKG; Complete Time: 08:24 [facility] 09/20 08:22 Order name: Cardiac monitoring; Complete Time: 08: [facility] 09/20 08:22 Order name: EKG - Nurse/Tech; Complete Time: : [facility] 09/20 08:22 Order name: IV Saline Lock; Complete Time: 08:48 [facility] 09/20 08:22 Order name: Labs collected and sent; Complete Time: 08:48 [facility] 09/20 08:22 Order name: O2 Per Protocol; Complete Time: : [facility] 09/20 08:22 Order name: O2 Sat Monitoring; Complete Time: :30 kdr EC/28 08:36 Rate is 89 beats/min. Rhythm is regular, Sinus Rhythm with No ectopy. Left axis kdr deviation noted. TX interval is normal. QRS interval is normal. QT interval is normal. No Q waves. Clinical impression: NSR w/ Non-specific ST/T Changes. Administered Medications: 08:42 Drug: Phenergan (promethazine) 12.5 mg Route: IVP; Site: right forearm; tw2 09:06 Follow up: Response: No adverse reaction tw2 08:45 Drug: morphine 4 mg Route: IVP; Site: right forearm; tw2 09:06 Follow up: Pain 9/10 Adult; Response: No adverse reaction; Pain is decreased; RASS: tw2 Alert and Calm (0) 08:47 Drug: Pepcid (famotidine) 20 mg Route: IVP; Site: right forearm; tw2 09:06 Follow up: Response: No adverse reaction tw2 11:10 Drug: TORadol - (ketorolac) 15 mg Route: IVP; Site: right antecubital; tw2 13:00 Follow up: Response: No adverse reaction; Pain is decreased tw2 11:12 Drug: SOLU-Medrol (methylPrednisoLONE) 125 mg Route: IVP; Site: right antecubital; tw2 13:00 Follow up: Response: No adverse reaction tw2 Disposition: 09/20/20 12:56 Discharged to Home. Impression: Upper back, Hypertensive heart disease, Anxiety disorder, unspecified. - Condition is Stable. - Discharge Instructions: Nonspecific Chest Pain, Rnif-[id number], Hypertension, Bfpo-ez-Treb, Back Pain, Adult, Nljy-ur-Ektp, Generalized Anxiety Disorder. - Prescriptions for Ibuprofen 600 mg Oral Tablet - take 1 tablet by ORAL route every 6 hours As needed take with food; 15 tablet. - Medication Reconciliation Form, Thank You Letter form. - Follow up: Дмитрий Christian MD; When: 2 - 3 days; Reason: If symptoms return, Further diagnostic work-up, Recheck today's complaints, Continuance of care, Re-evaluation by your physician. - Problem is new. - Symptoms have improved. Signatures: Dispatcher [employer] EDMS Дмитрий Christian MD MD [facility] Jane Banuelos RN RN tw2 Corrections: (The following items were deleted from the chart) 13:10 12:56 09/20/2020 12:56 Discharged to Home. Impression: Upper back; Hypertensive heart tw2 disease; Anxiety disorder, unspecified. Condition is Stable. Forms are Medication Reconciliation Form, Thank You Letter, Antibiotic Education, Prescription Opioid Use. Follow up: Dr. Дмитрий Christian; When: 2 - 3 days; Reason: If symptoms return, Further diagnostic work-up, Recheck today's complaints, Continuance of care, Re-evaluation by your physician. Problem is new. Symptoms have improved. kdr
[2020-09-20 13:31] VITALS: TEMP 98.1
[2020-09-20 13:36] VITALS: O2SAT 99
[2020-09-20 13:38] VITALS: BP 102/63
== END 2020-09-20 13:10 | disposition home or self-care (01) ==
LOC: ER 07:56
DX: I11.9 Hypertensive heart disease without heart failure (principal); F41.9 Anxiety disorder, unspecified; F17.210 Nicotine dependence, cigarettes, uncomplicated
CPT/HCPCS: 36415; 71045; 71275; 80048; 80076; 82565; 83735; 83880; 84484; 85025; 85610; 93005; 99285; J2550; J2930; Q9967